=== PATIENT | male | born 1940 | race Caucasian/White ===

== ENCOUNTER 2017-07-26 11:39 | Emergency (ER) | payer MEDICARE, OTHER ==
[~2017-07-26] VITALS: Ht 177.8 cm; Wt 96.4 kg
[~2017-07-26 11:39] MED LIST: CHOL100046 PO; FURO-149 PO; GUAI600T45 PO; IRON45TA7 PO; LOP25T PO; METF500T PO; METH1TAB32 PO; MULT1TAB74 PO; OXYB10TA16 PO; POTA10TA36 PO; RIVA20TA PO; SACU1TAB; SIMV20TA5 PO; [UNRECOGNIZED DRUG - CODE] IT
[2017-07-26 11:53] VITALS: BP 127/80
[2017-07-26] MEDS ORDERED: CLIN150C2 PO (12:15)
[2017-07-26] MEDS ORDERED: TETanus/Pertussis (Acell)/Diphther VAC/PF (Tdap-Adult) 0.5ml syringe IM ONE (12:20)
[2017-07-26] MEDS ORDERED: bacitracin 15gm ointment TP ONE (12:20)
== END 2017-07-26 12:55 | disposition home or self-care (01) ==
LOC: ER 11:40
DX: S81.801A Unspecified open wound, right lower leg, initial encounter (principal); L03.115 Cellulitis of right lower limb; I25.10 Atherosclerotic heart disease of native coronary artery without angina pectoris; I11.0 Hypertensive heart disease with heart failure; E11.9 Type 2 diabetes mellitus without complications; E78.00 Pure hypercholesterolemia, unspecified; I50.9 Heart failure, unspecified; I48.91 Unspecified atrial fibrillation; Z95.1 Presence of aortocoronary bypass graft; Z88.2 Allergy status to sulfonamides; Z79.84 Long term (current) use of oral hypoglycemic drugs; Z79.899 Other long term (current) drug therapy; Z98.890 Other specified postprocedural states; X58.XXXA Exposure to other specified factors, initial encounter; Y93.89 Activity, other specified; Y92.89 Other specified places as the place of occurrence of the external cause; Y99.8 Other external cause status
CPT/HCPCS: 90471; 90715; 99283; A6255; A6449

== ENCOUNTER 2017-09-01 05:06 | Outpatient (CLI) | payer MEDICARE, OTHER | END 2017-09-01 23:59 | disposition home or self-care (01) | LOC: DIABETIC 05:06 | PROVIDERS: ATTEND Family Medicine | DX: E11.9 Type 2 diabetes mellitus without complications (principal); E78.5 Hyperlipidemia, unspecified; I10 Essential (primary) hypertension; I25.10 Atherosclerotic heart disease of native coronary artery without angina pectoris; I11.0 Hypertensive heart disease with heart failure; I50.9 Heart failure, unspecified | CPT/HCPCS: G0108 ==

== ENCOUNTER 2017-12-07 10:58 | Emergency (ER) | payer MEDICARE, OTHER ==
[~2017-12-07] VITALS: Ht 177.8 cm; Wt 96.4 kg
[2017-12-07 14:11] VITALS: BP 163/77
[2017-12-07 14:54] LABS: BASOPHILS % (AUTO) 0.4 % (0-1); EOSINOPHILS # (AUTO) 0.2 X10'3 (0-0.9); EOSINOPHILS % (AUTO) 2.3 % (0-6); HEMATOCRIT 34.6 % (42.0-52.0); HEMOGLOBIN 11.4 g/dl (14.0-17.9); LYMPHOCYTES # (AUTO) 1.1 X10'3 (1.1-4.8); LYMPHOCYTES % (AUTO) 11.9 % (21-51); MEAN CORPUSCULAR HEMOGLOBIN 27.8 PG (27.0-31.0); MEAN CORPUSCULAR VOLUME 84.2 FL (78-98); MEAN PLATELET VOLUME 8.4 FL (7.4-10.4); MONOCYTES # (AUTO) 0.5 X10'3 (0-0.9); MONOCYTES % (AUTO) 5.6 % (2-12); NEUTROPHILS # (AUTO) 7.3 X10'3 (1.8-7.7); NEUTROPHILS % (AUTO) 79.8 % (42-75); PLATELET COUNT 301 X10'3 (140-440); RED BLOOD COUNT 4.11 X10'6 (4.70-6.10); RED CELL DISTRIBUTION WIDTH 18.2 % (11.5-14.5); WHITE BLOOD COUNT 9.1 X10'3 (4.5-11.0)
[2017-12-07 15:05] LABS: INR 1.2 INR; PARTIAL THROMBOPLASTIN TIME 40 SECONDS (22-32); PROTHROMBIN TIME 12.1 SECONDS (9.0-12.0)
[2017-12-07 15:10] LABS: ANISOCYTOSIS 2+; MICROCYTOSIS 1+; PLATELET ESTIMATE NORMAL
[2017-12-07 15:11] LABS: ALANINE AMINOTRANSFERASE 23 U/L (12-78); ALBUMIN 3.2 G/DL (3.4-5.0); ALBUMIN/GLOBULIN RATIO 0.7 (1.1-1.5); ALKALINE PHOSPHATASE 154 IU/L (46-116); ANION GAP 9 (8-16); ASPARTATE AMINO TRANSFERASE 13 U/L (10-37); BILIRUBIN,TOTAL 0.7 MG/DL (0.1-1.0); BLOOD UREA NITROGEN 12 MG/DL (7-18); BUN/CREATININE RATIO 11.7 (5.4-32.0); CALCIUM 9.5 MG/DL (8.5-10.1); CHLORIDE 103 MMOL/L (99-107); CREATININE 1.03 MG/DL (0.60-1.10); GLUCOSE 148 MG/DL (70-104); MAGNESIUM 2.1 MG/DL (1.5-2.4); POTASSIUM 3.5 MMOL/L (3.5-5.1); SODIUM 140 MMOL/L (135-145); TOTAL CARBON DIOXIDE 28.5 MMOL/L (24-32); TOTAL PROTEIN 7.6 G/DL (6.4-8.2); eGFR 70 ML/MIN
[2017-12-07] MEDS ORDERED: AMOX-580 PO (16:00)
== END 2017-12-07 16:41 | disposition home or self-care (01) ==
LOC: ER 10:59
DX: L08.9 Local infection of the skin and subcutaneous tissue, unspecified (principal); I25.10 Atherosclerotic heart disease of native coronary artery without angina pectoris; I11.0 Hypertensive heart disease with heart failure; I50.9 Heart failure, unspecified; E78.00 Pure hypercholesterolemia, unspecified; E11.9 Type 2 diabetes mellitus without complications; I48.91 Unspecified atrial fibrillation; Z95.1 Presence of aortocoronary bypass graft; Z95.0 Presence of cardiac pacemaker; Z88.2 Allergy status to sulfonamides; Z88.8 Allergy status to other drugs, medicaments and biological substances; Z91.010 Allergy to peanuts
CPT/HCPCS: 36415; 71045; 80053; 83605; 83735; 84145; 85025; 85610; 85730; 87040; 93005; 99285; A6253; A6255; A6258

== ENCOUNTER 2017-12-09 00:24 | Outpatient (CLI) | payer MEDICARE, OTHER ==
[~2017-12-09 00:24] MED LIST changes: +AMOX-580 PO
== END 2017-12-09 23:59 | disposition home or self-care (01) ==
LOC: DIABETIC 00:24
PROVIDERS: ATTEND Family Medicine
DX: E10.9 Type 1 diabetes mellitus without complications (principal); E78.5 Hyperlipidemia, unspecified; I67.9 Cerebrovascular disease, unspecified; I11.0 Hypertensive heart disease with heart failure; I50.9 Heart failure, unspecified; E66.01 Morbid (severe) obesity due to excess calories; Z79.84 Long term (current) use of oral hypoglycemic drugs; Z79.899 Other long term (current) drug therapy; Z88.2 Allergy status to sulfonamides; Z91.010 Allergy to peanuts; Z98.890 Other specified postprocedural states
CPT/HCPCS: G0108

== ENCOUNTER 2018-02-04 11:54 | Inpatient (IN) | payer MEDICARE, OTHER ==
[~2018-02-04] VITALS: Ht 177.8 cm; Wt 96.4 kg
[~2018-02-04 11:54] MED LIST changes: -AMOX-580 PO
[2018-02-04] MEDS ORDERED: levoFLOXACIN-Levaquin 750MG/D5 150 ML IV ONE (12:40)
[2018-02-04] MEDS ORDERED: normal saline 1000ML IV soln IV ONE (12:40)
[2018-02-04 13:26] LABS: BASOPHILS # (AUTO) 0.1 X10'3 (0-0.2); BASOPHILS % (AUTO) 0.6 % (0-1); EOSINOPHILS # (AUTO) 0.3 X10'3 (0-0.9); EOSINOPHILS % (AUTO) 2.7 % (0-6); HEMATOCRIT 34.1 % (42.0-52.0); LYMPHOCYTES % (AUTO) 8.6 % (21-51); MEAN CORPUSCULAR HEMOGLOBIN 27.4 PG (27.0-31.0); MEAN CORPUSCULAR HGB CONC 32.2 % (33.0-36.5); MEAN PLATELET VOLUME 8.6 FL (7.4-10.4); MONOCYTES # (AUTO) 0.5 X10'3 (0-0.9); MONOCYTES % (AUTO) 4.3 % (2-12); NEUTROPHILS # (AUTO) 9.4 X10'3 (1.8-7.7); NEUTROPHILS % (AUTO) 83.8 % (42-75); PLATELET COUNT 302 X10'3 (140-440); RED BLOOD COUNT 4.02 X10'6 (4.70-6.10); RED CELL DISTRIBUTION WIDTH 18.1 % (11.5-14.5); WHITE BLOOD COUNT 11.2 X10'3 (4.5-11.0)
[2018-02-04 13:32] LABS: INR 1.2 INR; PROTHROMBIN TIME 12.5 SECONDS (9.0-12.0)
[2018-02-04 13:45] LABS: ALANINE AMINOTRANSFERASE 19 U/L (12-78); ALBUMIN 3.1 G/DL (3.4-5.0); ALBUMIN/GLOBULIN RATIO 0.7 (1.1-1.5); ALKALINE PHOSPHATASE 143 IU/L (46-116); ANION GAP 9 (8-16); ASPARTATE AMINO TRANSFERASE 14 U/L (10-37); BILIRUBIN,TOTAL 0.6 MG/DL (0.1-1.0); BLOOD UREA NITROGEN 15 MG/DL (7-18); BUN/CREATININE RATIO 14.4 (5.4-32.0); CALCIUM 9.3 MG/DL (8.5-10.1); CHLORIDE 102 MMOL/L (99-107); CREATININE 1.04 MG/DL (0.60-1.10); GLUCOSE 171 MG/DL (70-104); POTASSIUM 3.7 MMOL/L (3.5-5.1); SODIUM 142 MMOL/L (135-145); TOTAL CARBON DIOXIDE 31.4 MMOL/L (24-32); TOTAL PROTEIN 7.6 G/DL (6.4-8.2); eGFR 69 ML/MIN
[2018-02-04] MEDS ORDERED: vancomycin inj 1,000 MG in normal saline 250ml IV soln 250 ML IV STA (14:05)
[2018-02-04] MEDS ORDERED: vancomycin/NS 1 GM ADD-VANTAGE 250 ML X 1 DOSE IV ONE (14:10)
[2018-02-04 14:15] LABS: CLARITY,URINE CLOUDY (Clear); COLOR,URINE YELLOW (Yellow); GLUCOSE, URINE NEGATIVE (Neg); KETONES,URINE NEGATIVE (Neg); LEUKOCYTE ESTERASE ,URINE LARGE (Neg); NITRITES, URINE POSITIVE (Neg); OCCULT BLOOD,URINE MODERATE (Neg); PROTEIN,URINE NEGATIVE (Neg); UROBILINOGEN,URINE 0.2 E.U/dL (0.2-1.0)
[2018-02-04 14:17] LABS: UA COLLECTION TYPE FOLEY CATH
[2018-02-04 14:38] LABS: SQUAMOUS EPITHELIAL CELL,UR FEW /LPF (FEW); TRANSITIONAL EPI CELLS,URINE FEW /HPF
[2018-02-04 14:39] LABS: BACTERIA,URINE 4+ /HPF (Neg); WBC CLUMPS,URINE MODERATE /HPF (NEGATIVE); WBC,URINE 50-100 /HPF (0-4)
[2018-02-04] MEDS ORDERED: magnesium hydroxide 30ml (MOM) UD suspension PO PRN (15:05)
[2018-02-04] MEDS ORDERED: potassium Cl 20 mEq SR tablet PO PRN ×2 (15:05)
[2018-02-04] MEDS ORDERED: potassium Cl 40MEQ/NS 500ml 500 ML IV PRN ×2 (15:05)
[2018-02-04] MEDS ORDERED: acetaminophen 650mg rectal suppository RC PRN (15:05)
[2018-02-04] MEDS ORDERED: acetaminophen 325mg tablet PO PRN (15:05)
[2018-02-04] MEDS ORDERED: magnesium 1gm/100ml D5W IVPB 100 ML IV PRN (15:05)
[2018-02-04] MEDS ORDERED: mag hydrox/Alum hydrox/simeth 30ml oral suspension PO PRN (15:05)
[2018-02-04] MEDS ORDERED: ondansetron/PF 4mg/2ml inj IV PRN (15:05)
[2018-02-04] MEDS ORDERED: magnesium 4gm in 100ml NS 100 ML IV PRN (15:05)
[2018-02-04] MEDS ORDERED: magnesium Cl slow-release 64mg tablet PO PRN (15:05)
[2018-02-04] MEDS ORDERED: insulin Lispro (HumaLOG) vial - multi-dose SQ SCH (15:35)
[2018-02-04] MEDS ORDERED: glucagon, human recombinant 1mg kit SUBCUT PRN (15:35)
[2018-02-04] MEDS ORDERED: dextrose 50%-water 50ml dispensing syringe IV PRN ×2 (15:35)
[2018-02-04] MEDS ORDERED: dextrose ORAL solution 15 GM/59 ML bottle PO PRN ×2 (15:35)
[2018-02-04] MEDS ORDERED: MESSAGE TO PHARMACY PO ONE (15:35)
[2018-02-04] MEDS ORDERED: VANCOMYCIN LEVEL PO NR (15:50)
[2018-02-04] MEDS: normal saline 1000ml 1,000 ML IV SCH (16:06)
[2018-02-04 16:54] LABS: HEMOGLOBIN A1C 7.6 % (4.5-6.2)
[2018-02-04 17:25] VITALS: BP 179/87
[2018-02-04 18:00] VITALS: BP 143/64
[2018-02-04] MEDS ORDERED: non-formulary drug (Potassium Chloride (K-Dur) 1 TAB) PO SCH (20:00)
[2018-02-04] MEDS ORDERED: non-formulary drug (Simvastatin* (Zocor*) 1 TAB) PO SCH (21:00)
[2018-02-04] MEDS ORDERED: temazepam 15mg capsule PO PRN (21:00)
[2018-02-04] MEDS: insulin glargine (Lantus) pen - multi-dose SQ SCH (21:00)
[2018-02-04] MEDS: potassium chloride 10mEq ER tablet PO SCH (21:40)
[2018-02-04] MEDS: furosemide 20MG tablet PO SCH (21:41)
[2018-02-04] MEDS: methenamine hippurate 1gm tablet PO SCH (21:42)
[2018-02-04] MEDS: heparin, porcine 5000 units/ml vial SQ SCH (21:42)
[2018-02-04] MEDS: metoprolol tartrate 25mg tablet PO SCH (21:43)
[2018-02-04] MEDS: atorvastatin 10mg tablet PO SCH (21:44)
[2018-02-04] MEDS: CefTRIAXone 2gm/D5W 50ml 50 ML IV SCH (21:54)
[2018-02-04] MEDS ORDERED: vancomycin inj 1,250 MG in normal saline 250ml IV soln 250 ML IV SCH (22:00)
[2018-02-04] MEDS: vancomycin inj 1,250 MG in normal saline 250ml IV soln 250 ML IV SCH (23:35)
[2018-02-05] VITALS: BP 109/56
[2018-02-05] MEDS ORDERED: vancomycin inj 1,250 MG in normal saline 250ml IV soln 250 ML IV SCH (03:00)
[2018-02-05] MEDS: normal saline 1000ml 1,000 ML IV SCH ×2 (04:24→12:37)
[2018-02-05 07:39] VITALS: BP 125/63
[2018-02-05] MEDS: K and/or MAG REPLACEMENT MC SCH (07:59)
[2018-02-05] MEDS: heparin, porcine 5000 units/ml vial SQ SCH ×2 (08:00→21:01)
[2018-02-05] MEDS ORDERED: rivaroxaban 20mg tablet PO SCH (08:00)
[2018-02-05] MEDS: CefTRIAXone 2gm/D5W 50ml 50 ML IV SCH (08:07)
[2018-02-05] MEDS: methenamine hippurate 1gm tablet PO SCH ×2 (08:07→21:00)
[2018-02-05] MEDS: metoprolol tartrate 25mg tablet PO SCH ×2 (08:07→20:59)
[2018-02-05] MEDS: furosemide 20MG tablet PO SCH ×2 (08:08→20:59)
[2018-02-05] MEDS: potassium chloride 10mEq ER tablet PO SCH ×2 (08:08→20:58)
[2018-02-05 12:04] VITALS: BP 120/57
[2018-02-05] MEDS: vancomycin inj 1,250 MG in normal saline 250ml IV soln 250 ML IV SCH ×2 (12:33→22:44)
[2018-02-05] MEDS ORDERED: lactose-reduced food (Ensure High Protein) 237ml bottle PO SCH (17:30)
[2018-02-05 18:00] VITALS: BP 137/63
[2018-02-05] MEDS: lactobacillus rhamnosus 10,000 MMU CELLS/CAPSULE PO SCH (20:58)
[2018-02-05] MEDS: sacubitril/valsartan 24mg-26mg tablet PO SCH (20:59)
[2018-02-05] MEDS: insulin glargine (Lantus) pen - multi-dose SQ SCH (21:00)
[2018-02-05] MEDS: atorvastatin 10mg tablet PO SCH (21:00)
[2018-02-05] MEDS: rivaroxaban 20mg tablet PO SCH ×2 (21:00→21:01)
[2018-02-06] VITALS: BP 119/65
[2018-02-06 07:14] VITALS: BP 113/46
[2018-02-06] MEDS: lactobacillus rhamnosus 10,000 MMU CELLS/CAPSULE PO SCH (07:32)
[2018-02-06] MEDS: methenamine hippurate 1gm tablet PO SCH (07:33)
[2018-02-06] MEDS: potassium chloride 10mEq ER tablet PO SCH (07:33)
[2018-02-06] MEDS: heparin, porcine 5000 units/ml vial SQ SCH (07:40)
[2018-02-06] MEDS: sacubitril/valsartan 24mg-26mg tablet PO SCH (07:40)
[2018-02-06 07:41] VITALS: BP_SYST 104
[2018-02-06] MEDS: metoprolol tartrate 25mg tablet PO SCH (07:41)
[2018-02-06] MEDS: furosemide 20MG tablet PO SCH (07:44)
[2018-02-06] MEDS: K and/or MAG REPLACEMENT MC SCH (07:57)
[2018-02-06] MEDS ORDERED: piperacillin/tazo 4.5gm/100ml 100 ML IV SCH (08:00)
[2018-02-06] MEDS ORDERED: LEVO500T2 PO (09:15)
[2018-02-06] MEDS ORDERED: CEPH250T PO (09:15)
[2018-02-06] MEDS ORDERED: VANCOMYCIN LEVEL PO ONE (10:30)
[2018-02-06] MEDS ORDERED: NUT.TX.GLUC.INTOLER,LAC-FR,SOY (GLUCERNA) 237 ML PO SCH (12:30)
== END 2018-02-06 12:00 | disposition home health service (06) | DRG 698 ==
LOC: ER 11:54 → ED HOLD 15:04 → SUR 3N 17:27
PROVIDERS: ADMIT Internal Medicine; ATTEND Internal Medicine
DX: T83.511A Infection and inflammatory reaction due to indwelling urethral catheter, initial encounter (principal); G82.50 Quadriplegia, unspecified; L03.317 Cellulitis of buttock; L89.319 Pressure ulcer of right buttock, unspecified stage; B96.20 Unspecified Escherichia coli [E. coli] as the cause of diseases classified elsewhere; D63.8 Anemia in other chronic diseases classified elsewhere; E11.9 Type 2 diabetes mellitus without complications; E78.00 Pure hypercholesterolemia, unspecified; N39.0 Urinary tract infection, site not specified; E78.5 Hyperlipidemia, unspecified; G47.30 Sleep apnea, unspecified; I11.0 Hypertensive heart disease with heart failure; B96.4 Proteus (mirabilis) (morganii) as the cause of diseases classified elsewhere; B95.2 Enterococcus as the cause of diseases classified elsewhere; Y84.6 Urinary catheterization as the cause of abnormal reaction of the patient, or of later complication, without mention of misadventure at the time of the procedure; I25.10 Atherosclerotic heart disease of native coronary artery without angina pectoris; I48.91 Unspecified atrial fibrillation; I50.9 Heart failure, unspecified; Z93.3 Colostomy status; Z95.5 Presence of coronary angioplasty implant and graft; Z95.1 Presence of aortocoronary bypass graft; Z88.2 Allergy status to sulfonamides; Z88.8 Allergy status to other drugs, medicaments and biological substances; Z91.010 Allergy to peanuts; Z79.01 Long term (current) use of anticoagulants; Z79.84 Long term (current) use of oral hypoglycemic drugs; Z79.899 Other long term (current) drug therapy; Y92.89 Other specified places as the place of occurrence of the external cause
CPT/HCPCS: 36415; 71045; 80053; 81001; 82948; 83036; 83605; 83735; 84145; 85025; 85610; 87040; 87070; 87077; 87088; 87186; 96365; 99285; G0378; J0696; J1644; J1815; J1956; J2543; J3370; J7030

== ENCOUNTER 2018-02-11 10:52 | Day surgery (SDC) | payer MEDICARE, OTHER ==
[~2018-02-11 10:52] MED LIST changes: +CEPH250T PO; -GUAI600T45 PO; +LEVO500T2 PO; -OXYB10TA16 PO
== END 2018-02-11 13:05 | disposition home or self-care (01) ==
LOC: WOUND CARE 10:52
PROVIDERS: ATTEND Surgery
DX: E11.622 Type 2 diabetes mellitus with other skin ulcer (principal); L89.314 Pressure ulcer of right buttock, stage 4; L98.411 Non-pressure chronic ulcer of buttock limited to breakdown of skin; D63.8 Anemia in other chronic diseases classified elsewhere; I11.0 Hypertensive heart disease with heart failure; I25.10 Atherosclerotic heart disease of native coronary artery without angina pectoris; I50.9 Heart failure, unspecified; E78.5 Hyperlipidemia, unspecified; E78.00 Pure hypercholesterolemia, unspecified; G82.50 Quadriplegia, unspecified; G47.30 Sleep apnea, unspecified; I48.91 Unspecified atrial fibrillation; Z79.01 Long term (current) use of anticoagulants; Z79.84 Long term (current) use of oral hypoglycemic drugs; Z79.899 Other long term (current) drug therapy; Z95.1 Presence of aortocoronary bypass graft; Z95.5 Presence of coronary angioplasty implant and graft
CPT/HCPCS: 82948; 97597; A6266; A6213

== ENCOUNTER 2018-02-25 10:54 | Day surgery (SDC) | payer MEDICARE, OTHER | END 2018-02-25 13:12 | disposition home or self-care (01) | LOC: WOUND CARE 10:54 | PROVIDERS: ATTEND Surgery | DX: E11.622 Type 2 diabetes mellitus with other skin ulcer (principal); L89.314 Pressure ulcer of right buttock, stage 4; L98.411 Non-pressure chronic ulcer of buttock limited to breakdown of skin; D63.8 Anemia in other chronic diseases classified elsewhere; I11.0 Hypertensive heart disease with heart failure; I25.10 Atherosclerotic heart disease of native coronary artery without angina pectoris; I50.9 Heart failure, unspecified; E78.5 Hyperlipidemia, unspecified; E78.00 Pure hypercholesterolemia, unspecified; G82.50 Quadriplegia, unspecified; G47.30 Sleep apnea, unspecified; I48.91 Unspecified atrial fibrillation; Z79.01 Long term (current) use of anticoagulants; Z79.84 Long term (current) use of oral hypoglycemic drugs; Z79.899 Other long term (current) drug therapy; Z95.1 Presence of aortocoronary bypass graft; Z95.5 Presence of coronary angioplasty implant and graft | CPT/HCPCS: 36416; 82948; 97597; A6266; A6021; A6206; A6240; A6243 ==

== ENCOUNTER 2018-03-04 11:00 | Day surgery (SDC) | payer MEDICARE, OTHER ==
[2018-03-04] MEDS ORDERED: nystatin/triamcinolone cream 15gm TP ONE (12:32)
== END 2018-03-04 13:30 | disposition home or self-care (01) ==
LOC: WOUND CARE 11:00
PROVIDERS: ATTEND Surgery
DX: E11.622 Type 2 diabetes mellitus with other skin ulcer (principal); L89.314 Pressure ulcer of right buttock, stage 4; L98.411 Non-pressure chronic ulcer of buttock limited to breakdown of skin; D63.8 Anemia in other chronic diseases classified elsewhere; L30.4 Erythema intertrigo; I11.0 Hypertensive heart disease with heart failure; I25.10 Atherosclerotic heart disease of native coronary artery without angina pectoris; I50.9 Heart failure, unspecified; E78.5 Hyperlipidemia, unspecified; E78.00 Pure hypercholesterolemia, unspecified; G82.50 Quadriplegia, unspecified; G47.30 Sleep apnea, unspecified; I48.91 Unspecified atrial fibrillation; Z79.01 Long term (current) use of anticoagulants; Z79.84 Long term (current) use of oral hypoglycemic drugs; Z79.899 Other long term (current) drug therapy; Z95.1 Presence of aortocoronary bypass graft; Z95.5 Presence of coronary angioplasty implant and graft
CPT/HCPCS: 97597; 97598; A6266; A6213; A6243

== ENCOUNTER 2018-03-10 00:54 | Outpatient (CLI) | payer MEDICARE, OTHER ==
[~2018-03-10 00:54] MED LIST changes: -CEPH250T PO; -LEVO500T2 PO
== END 2018-03-10 23:59 | disposition home or self-care (01) ==
LOC: DIABETIC 00:54
PROVIDERS: ATTEND Family Medicine
DX: E11.9 Type 2 diabetes mellitus without complications (principal); I11.0 Hypertensive heart disease with heart failure; I50.9 Heart failure, unspecified; I67.9 Cerebrovascular disease, unspecified; E78.5 Hyperlipidemia, unspecified; E66.01 Morbid (severe) obesity due to excess calories; Z79.899 Other long term (current) drug therapy; Z88.2 Allergy status to sulfonamides; Z91.010 Allergy to peanuts
CPT/HCPCS: G0108

== ENCOUNTER 2018-03-12 18:03 | Emergency (ER) | payer MEDICARE, OTHER ==
[~2018-03-12] VITALS: Ht 177.8 cm; Wt 96.4 kg
[2018-03-12 19:02] LABS: ALANINE AMINOTRANSFERASE 23 U/L (12-78); ALBUMIN 3.6 G/DL (3.4-5.0); ALBUMIN/GLOBULIN RATIO 0.8 (1.1-1.5); ALKALINE PHOSPHATASE 149 IU/L (46-116); ANION GAP 9 (8-16); ASPARTATE AMINO TRANSFERASE 18 U/L (10-37); BILIRUBIN,TOTAL 0.5 MG/DL (0.1-1.0); BLOOD UREA NITROGEN 15 MG/DL (7-18); BUN/CREATININE RATIO 15.2 (5.4-32.0); CALCIUM 9.3 MG/DL (8.5-10.1); CHLORIDE 102 MMOL/L (99-107); CREATININE 0.99 MG/DL (0.60-1.10); GLUCOSE 177 MG/DL (70-104); INR 1.1 INR; PARTIAL THROMBOPLASTIN TIME 36 SECONDS (22-32); POTASSIUM 3.6 MMOL/L (3.5-5.1); PROTHROMBIN TIME 11.3 SECONDS (9.0-12.0); SODIUM 140 MMOL/L (135-145); TOTAL CARBON DIOXIDE 29.4 MMOL/L (24-32); TOTAL PROTEIN 8.1 G/DL (6.4-8.2); eGFR 73 ML/MIN
[2018-03-12 19:09] LABS: BASOPHILS % (AUTO) 0.2 % (0-1); EOSINOPHILS # (AUTO) 0.4 X10'3 (0-0.9); EOSINOPHILS % (AUTO) 4.3 % (0-6); HEMATOCRIT 35.8 % (42.0-52.0); HEMOGLOBIN 11.7 g/dl (14.0-17.9); LYMPHOCYTES # (AUTO) 1.5 X10'3 (1.1-4.8); LYMPHOCYTES % (AUTO) 14.7 % (21-51); MEAN CORPUSCULAR HEMOGLOBIN 27.4 PG (27.0-31.0); MEAN CORPUSCULAR HGB CONC 32.6 % (33.0-36.5); MEAN CORPUSCULAR VOLUME 84.1 FL (78-98); MEAN PLATELET VOLUME 9.3 FL (7.4-10.4); MONOCYTES # (AUTO) 0.5 X10'3 (0-0.9); MONOCYTES % (AUTO) 5.1 % (2-12); NEUTROPHILS # (AUTO) 7.5 X10'3 (1.8-7.7); NEUTROPHILS % (AUTO) 75.7 % (42-75); PLATELET COUNT 309 X10'3 (140-440); RED BLOOD COUNT 4.25 X10'6 (4.70-6.10); WHITE BLOOD COUNT 9.9 X10'3 (4.5-11.0)
[2018-03-12 21:29] LABS: CLARITY,URINE SLIGHTLY CLOUDY (Clear); COLOR,URINE YELLOW (Yellow); GLUCOSE, URINE NEGATIVE (Neg); KETONES,URINE NEGATIVE (Neg); LEUKOCYTE ESTERASE ,URINE LARGE (Neg); NITRITES, URINE NEGATIVE (Neg); OCCULT BLOOD,URINE MODERATE (Neg); PROTEIN,URINE 30 mg/dl (Neg); UROBILINOGEN,URINE 0.2 E.U/dL (0.2-1.0)
[2018-03-12 21:36] LABS: UA COLLECTION TYPE FOLEY CATH
[2018-03-12 21:37] LABS: BACTERIA,URINE 4+ /HPF (Neg); SQUAMOUS EPITHELIAL CELL,UR MODERATE /LPF (FEW); WBC,URINE TNTC /HPF (0-4)
[2018-03-12 21:38] LABS: YEAST MANY /HPF (NEGATIVE)
[2018-03-12] MEDS ORDERED: NITR100C6 PO (21:55)
[2018-03-12] MEDS: CefTRIAXone/D5W-Rocephin 1gm 50 ML IV ONE ×2 (22:16→22:47)
[2018-03-12 22:32] VITALS: BP 162/101
[2018-03-12] MEDS ORDERED: CefTRIAXone 1000mg IM Kit (w/lidocaine diluent) IM ONE (22:45)
== END 2018-03-12 23:51 | disposition home or self-care (01) ==
LOC: ER 18:04
DX: R53.1 Weakness (principal); N39.0 Urinary tract infection, site not specified; I48.91 Unspecified atrial fibrillation; I25.10 Atherosclerotic heart disease of native coronary artery without angina pectoris; I50.9 Heart failure, unspecified; E78.00 Pure hypercholesterolemia, unspecified; I11.0 Hypertensive heart disease with heart failure; E11.9 Type 2 diabetes mellitus without complications; Z98.61 Coronary angioplasty status; Z95.1 Presence of aortocoronary bypass graft; Z95.0 Presence of cardiac pacemaker; Z98.890 Other specified postprocedural states; Z91.010 Allergy to peanuts; Z88.2 Allergy status to sulfonamides; Z88.8 Allergy status to other drugs, medicaments and biological substances; Z79.899 Other long term (current) drug therapy
CPT/HCPCS: 36415; 70450; 71045; 80053; 81001; 82948; 85025; 85610; 85730; 87077; 87088; 87186; 93005; 96372; 99284; J0696

== ENCOUNTER 2018-03-18 10:57 | Outpatient (CLI) | payer MEDICARE, OTHER ==
[~2018-03-18 10:57] MED LIST changes: +NITR100C6 PO
== END 2018-03-18 13:14 | disposition home or self-care (01) ==
LOC: WOUND CARE 10:57 → EDSTATUS 11:00 → WOUND CARE 13:14
PROVIDERS: ATTEND Surgery
DX: E11.622 Type 2 diabetes mellitus with other skin ulcer (principal); L89.314 Pressure ulcer of right buttock, stage 4; L98.411 Non-pressure chronic ulcer of buttock limited to breakdown of skin; D63.8 Anemia in other chronic diseases classified elsewhere; L30.4 Erythema intertrigo; I11.0 Hypertensive heart disease with heart failure; I25.10 Atherosclerotic heart disease of native coronary artery without angina pectoris; I50.9 Heart failure, unspecified; E78.5 Hyperlipidemia, unspecified; E78.00 Pure hypercholesterolemia, unspecified; G82.50 Quadriplegia, unspecified; G47.30 Sleep apnea, unspecified; I48.91 Unspecified atrial fibrillation; Z79.01 Long term (current) use of anticoagulants; Z79.84 Long term (current) use of oral hypoglycemic drugs; Z79.899 Other long term (current) drug therapy; Z95.1 Presence of aortocoronary bypass graft; Z95.5 Presence of coronary angioplasty implant and graft
CPT/HCPCS: 36416; 82948; A6266; G0463; A6021; A6206; A6240; A6243

== ENCOUNTER 2018-03-22 22:12 | Inpatient (IN) | payer MEDICARE, OTHER ==
[~2018-03-22] VITALS: Ht 175.3 cm; Wt 100.0 kg
[2018-03-22 23:13] LABS: BASOPHILS % (AUTO) 0.3 % (0-1); EOSINOPHILS # (AUTO) 0.2 X10'3 (0-0.9); HEMATOCRIT 36.4 % (42.0-52.0); HEMOGLOBIN 11.5 g/dl (14.0-17.9); LYMPHOCYTES # (AUTO) 0.9 X10'3 (1.1-4.8); LYMPHOCYTES % (AUTO) 7.7 % (21-51); MEAN CORPUSCULAR HGB CONC 31.6 % (33.0-36.5); MEAN CORPUSCULAR VOLUME 85.4 FL (78-98); MEAN PLATELET VOLUME 9.2 FL (7.4-10.4); MONOCYTES # (AUTO) 0.4 X10'3 (0-0.9); MONOCYTES % (AUTO) 3.4 % (2-12); NEUTROPHILS # (AUTO) 10.3 X10'3 (1.8-7.7); NEUTROPHILS % (AUTO) 86.6 % (42-75); PLATELET COUNT 309 X10'3 (140-440); RED BLOOD COUNT 4.27 X10'6 (4.70-6.10); RED CELL DISTRIBUTION WIDTH 18.3 % (11.5-14.5); WHITE BLOOD COUNT 11.9 X10'3 (4.5-11.0)
[2018-03-22 23:31] LABS: INR 1.6 INR; PARTIAL THROMBOPLASTIN TIME 45 SECONDS (22-32); PROTHROMBIN TIME 15.4 SECONDS (9.0-12.0)
[2018-03-22 23:33] LABS: ALANINE AMINOTRANSFERASE 23 U/L (12-78); ALBUMIN 3.7 G/DL (3.4-5.0); ALBUMIN/GLOBULIN RATIO 0.8 (1.1-1.5); ALKALINE PHOSPHATASE 142 IU/L (46-116); ANION GAP 12 (8-16); ASPARTATE AMINO TRANSFERASE 18 U/L (10-37); BILIRUBIN,TOTAL 0.6 MG/DL (0.1-1.0); BLOOD UREA NITROGEN 17 MG/DL (7-18); BUN/CREATININE RATIO 17.5 (5.4-32.0); CALCIUM 9.1 MG/DL (8.5-10.1); CHLORIDE 104 MMOL/L (99-107); CREATININE 0.97 MG/DL (0.60-1.10); GLUCOSE 159 MG/DL (70-104); POTASSIUM 3.7 MMOL/L (3.5-5.1); SODIUM 143 MMOL/L (135-145); TOTAL CARBON DIOXIDE 27.5 MMOL/L (24-32); TOTAL PROTEIN 8.1 G/DL (6.4-8.2); eGFR 75 ML/MIN
[2018-03-23 00:43] LABS: COLOR,URINE YELLOW (Yellow); GLUCOSE, URINE NEGATIVE (Neg); KETONES,URINE NEGATIVE (Neg); LEUKOCYTE ESTERASE ,URINE LARGE (Neg); NITRITES, URINE POSITIVE (Neg); OCCULT BLOOD,URINE SMALL (Neg); PROTEIN,URINE NEGATIVE (Neg); UROBILINOGEN,URINE 0.2 E.U/dL (0.2-1.0)
[2018-03-23 00:48] LABS: CLARITY,URINE SLIGHTLY CLOUDY (Clear); UA COLLECTION TYPE STRAIGHT CATH
[2018-03-23 00:50] LABS: BACTERIA,URINE 3+ /HPF (Neg); SQUAMOUS EPITHELIAL CELL,UR NONE SEEN /LPF (FEW); WBC,URINE 30-50 /HPF (0-4); YEAST FEW /HPF (NEGATIVE)
--- NOTE | 2018-03-23 01:32 | NUR ---
WENT TO DRAW PTS 3 HR TROP, FOUND IV OUT OF ARM. LAB WENT TO DRAW LABS AND PT REFUSED. TRACY WAS NOTIFIED
[2018-03-23] MEDS ORDERED: CEPH250T PO (01:47)
[2018-03-23] MEDS ORDERED: CefTRIAXone 1000mg IM Kit (w/lidocaine diluent) IM ONE (01:50)
--- NOTE | 2018-03-23 02:01 | NUR ---
AWARE OF VITAL SIGNS
--- NOTE | 2018-03-23 02:02 | NUR ---
MD WOOD TOLD PT ABOUT POC TO STAY IN HOSPITAL
[2018-03-23] MEDS ORDERED: hydrALAZINE 20mg/ml inj. IV ONE (02:10)
[2018-03-23] MEDS ORDERED: mag hydrox/Alum hydrox/simeth 30ml oral suspension PO PRN (02:45)
[2018-03-23] MEDS ORDERED: HYDROmorphone 1 mg/ml syringe IV PRN (02:45)
[2018-03-23] MEDS ORDERED: diphenhydrAMINE 50 mg/ml inj IV PRN (02:45)
[2018-03-23] MEDS ORDERED: acetaminophen 325mg tablet PO PRN (02:45)
[2018-03-23] MEDS ORDERED: acetaminophen 650mg rectal suppository RC PRN (02:45)
[2018-03-23] MEDS ORDERED: magnesium hydroxide 30ml (MOM) UD suspension PO PRN (02:45)
[2018-03-23] MEDS ORDERED: HYDROcodone/acetaminophen 10/325mg tab PO PRN (02:45)
[2018-03-23] MEDS ORDERED: ondansetron/PF 4mg/2ml inj IV PRN (02:45)
[2018-03-23] MEDS ORDERED: bisacodyl 10mg suppository rectal RC PRN (02:45)
[2018-03-23] MEDS ORDERED: morphine 4 MG/ML inj SYRINge IV PRN (02:45)
[2018-03-23] MEDS ORDERED: diphenhydrAMINE 25mg capsule PO PRN (02:45)
[2018-03-23] MEDS ORDERED: dextrose 50%-water 50ml dispensing syringe IV PRN ×2 (02:50)
[2018-03-23] MEDS ORDERED: glucagon, human recombinant 1mg kit SUBCUT PRN (02:50)
[2018-03-23] MEDS ORDERED: insulin Lispro (HumaLOG) vial - multi-dose SQ SCH (02:50)
[2018-03-23] MEDS ORDERED: MESSAGE TO PHARMACY PO ONE (02:50)
[2018-03-23] MEDS ORDERED: dextrose ORAL solution 15 GM/59 ML bottle PO PRN ×2 (02:50)
[2018-03-23] MEDS ORDERED: hydrALAZINE 20mg/ml inj. IV PRN (02:50)
[2018-03-23] MEDS ORDERED: normal saline 1000ml 1,000 ML IV STA (03:11)
[2018-03-23 03:26] LABS: MAGNESIUM 2.2 MG/DL (1.5-2.4)
--- NOTE | 2018-03-23 04:00 | NUR ---
Patient in room ORTHO 4011. I have received report from REID Johnson and had the opportunity to ask questions and assume patient care. Addendum: 03/23/18 at 0536 by Corina Khan RN Report received from REID Torres
[2018-03-23 04:30] VITALS: BP 141/61
[2018-03-23] MEDS: normal saline 1000ml 1,000 ML IV SCH (05:20)
[2018-03-23 06:00] VITALS: BP 141/60
--- NOTE | 2018-03-23 06:05 | NUR ---
Patient in room ORTHO 4011. I have received report from JOSE MANUEL MATHEWS and had the opportunity to ask questions and assume patient care.
--- NOTE | 2018-03-23 06:48 | NUR ---
Problems reprioritized. Patient report given, questions answered & plan of care reviewed with REID Overton.
[2018-03-23] MEDS ORDERED: methenamine hippurate 1gm tablet PO SCH (08:00)
[2018-03-23] MEDS: rivaroxaban 20mg tablet PO SCH (08:44)
[2018-03-23] MEDS: pantoprazole 40mg Tablet.DR PO SCH (08:44)
[2018-03-23] MEDS: vitamin D (cholecalciferol) 1,000 unit tablet PO SCH (08:44)
[2018-03-23] MEDS: docusate sod 100mg capsule PO SCH ×2 (08:45→19:58)
[2018-03-23] MEDS: metoprolol tartrate 25mg tablet PO SCH ×2 (08:47→19:58)
[2018-03-23 10:00] VITALS: BP 129/47
[2018-03-23] MEDS: CefTRIAXone/D5W-Rocephin 1gm 50 ML IV SCH (13:35)
[2018-03-23 13:51] LABS: INR 1.6 INR; PARTIAL THROMBOPLASTIN TIME 44 SECONDS (22-32); PROTHROMBIN TIME 16.1 SECONDS (9.0-12.0)
[2018-03-23] MEDS: levoFLOXACIN-Levaquin 500mg/D5 100 ML IV SCH (14:48)
--- NOTE | 2018-03-23 16:30 | NUR ---
CALLED [facility] FOR WOUND CARE ORDERS. WILL BE FAXED WHEN AVAILABLE.
--- NOTE | 2018-03-23 16:31 | NUR ---
IV INFILTRATED AGAIN, RECEIVED IV ABX. MULTIPLE ATTEMPTS AT IV ACCESS. WILL ATTEMPT TO CONTACT PICC LINE RN TOMORROW FOR AN EXTENDED AND NOTIFY MD.
[2018-03-23 18:00] VITALS: BP 138/53
--- NOTE | 2018-03-23 18:20 | NUR ---
Problems reprioritized. Patient report given, questions answered & plan of care reviewed with CASANDRA MATHEWS.
--- NOTE | 2018-03-23 18:31 | NUR ---
Patient in room ORTHO 4011. I have received report from Chaim MATHEWS and had the opportunity to ask questions and assume patient care.
[2018-03-23] MEDS: methenamine hippurate 1gm tablet PO SCH (19:59)
[2018-03-23] MEDS ORDERED: temazepam 15mg capsule PO PRN (21:00)
[2018-03-23] MEDS: insulin glargine (Lantus) pen - multi-dose SQ SCH (21:00)
[2018-03-23] MEDS: atorvastatin 10mg tablet PO SCH (21:20)
[2018-03-23 22:00] VITALS: BP 166/78
[2018-03-24] MEDS: CefTRIAXone/D5W-Rocephin 1gm 50 ML IV SCH ×3 (01:17→20:03)
[2018-03-24 06:00] VITALS: BP 97/42
--- NOTE | 2018-03-24 06:12 | NUR ---
Patient in room ORTHO 4011. I have received report from CSAANDRA MATHEWS and had the opportunity to ask questions and assume patient care.
--- NOTE | 2018-03-24 06:27 | NUR ---
Problems reprioritized. Patient report given, questions answered & plan of care reviewed with Chaim MATHEWS.
[2018-03-24] MEDS: docusate sod 100mg capsule PO SCH ×2 (08:00→20:04)
[2018-03-24 08:23] LABS: ALANINE AMINOTRANSFERASE 7 U/L (12-78); ALBUMIN 2.9 G/DL (3.4-5.0); ALBUMIN/GLOBULIN RATIO 0.8 (1.1-1.5); ALKALINE PHOSPHATASE 103 IU/L (46-116); ANION GAP 9 (8-16); ASPARTATE AMINO TRANSFERASE 10 U/L (10-37); BILIRUBIN,TOTAL 0.5 MG/DL (0.1-1.0); BLOOD UREA NITROGEN 16 MG/DL (7-18); BUN/CREATININE RATIO 17.8 (5.4-32.0); CALCIUM 8.6 MG/DL (8.5-10.1); CHLORIDE 107 MMOL/L (99-107); GLUCOSE 133 MG/DL (70-104); SODIUM 143 MMOL/L (135-145); TOTAL CARBON DIOXIDE 26.7 MMOL/L (24-32); TOTAL PROTEIN 6.5 G/DL (6.4-8.2); eGFR 82 ML/MIN
--- NOTE | 2018-03-24 08:34 | NUR ---
PAGER ID: [phone] MESSAGE: [phone] [id number] RE: DOMONIQUE [id number] CRITICAL K 3.0, CAN I ORDER THE PROTOCOL
[2018-03-24] MEDS ORDERED: magnesium 4gm in 100ml NS 100 ML IV PRN (08:40)
[2018-03-24] MEDS ORDERED: potassium Cl 20 mEq SR tablet PO PRN (08:40)
[2018-03-24] MEDS ORDERED: potassium Cl 40MEQ/NS 500ml 500 ML IV PRN ×2 (08:40)
[2018-03-24] MEDS ORDERED: magnesium 2GM in 50ml NS 50 ML IV PRN (08:40)
[2018-03-24] MEDS ORDERED: magnesium Cl slow-release 64mg tablet PO PRN (08:40)
[2018-03-24 08:52] LABS: BASOPHILS % (AUTO) 0.4 % (0-1); EOSINOPHILS # (AUTO) 0.4 X10'3 (0-0.9); EOSINOPHILS % (AUTO) 5.2 % (0-6); HEMOGLOBIN 9.6 g/dl (14.0-17.9); LYMPHOCYTES # (AUTO) 0.9 X10'3 (1.1-4.8); LYMPHOCYTES % (AUTO) 12.4 % (21-51); MEAN CORPUSCULAR VOLUME 84.4 FL (78-98); MEAN PLATELET VOLUME 9.6 FL (7.4-10.4); MONOCYTES # (AUTO) 0.3 X10'3 (0-0.9); MONOCYTES % (AUTO) 4.8 % (2-12); NEUTROPHILS # (AUTO) 5.6 X10'3 (1.8-7.7); NEUTROPHILS % (AUTO) 77.2 % (42-75); PLATELET COUNT 221 X10'3 (140-440); RED BLOOD COUNT 3.55 X10'6 (4.70-6.10); RED CELL DISTRIBUTION WIDTH 18.3 % (11.5-14.5); WHITE BLOOD COUNT 7.2 X10'3 (4.5-11.0)
[2018-03-24] MEDS: pantoprazole 40mg Tablet.DR PO SCH (09:08)
[2018-03-24] MEDS: rivaroxaban 20mg tablet PO SCH (09:10)
[2018-03-24] MEDS: vitamin D (cholecalciferol) 1,000 unit tablet PO SCH (09:10)
[2018-03-24 09:12] VITALS: BP 129/71
[2018-03-24] MEDS: metoprolol tartrate 25mg tablet PO SCH ×2 (09:15→20:08)
[2018-03-24] MEDS: methenamine hippurate 1gm tablet PO SCH ×2 (09:16→20:04)
[2018-03-24] MEDS: potassium Cl 20 mEq SR tablet PO PRN ×3 (09:17→17:34)
[2018-03-24 10:00] VITALS: BP 132/64
[2018-03-24] MEDS: levoFLOXACIN-Levaquin 500mg/D5 100 ML IV SCH (10:41)
[2018-03-24 18:00] VITALS: BP 129/66
--- NOTE | 2018-03-24 18:10 | NUR ---
Problems reprioritized. Patient report given, questions answered & plan of care reviewed with ROBERT MATHEWS.
--- NOTE | 2018-03-24 18:30 | NUR ---
Patient in room ORTHO 4011. I have received report from REID GLASS and had the opportunity to ask questions and assume patient care.
[2018-03-24] MEDS: lactobacillus rhamnosus 10,000 MMU CELLS/CAPSULE PO SCH (20:04)
[2018-03-24] MEDS: atorvastatin 10mg tablet PO SCH (20:04)
[2018-03-24] MEDS: insulin glargine (Lantus) pen - multi-dose SQ SCH (21:00)
[2018-03-24 22:00] VITALS: BP 121/61
[2018-03-25 06:00] VITALS: BP 132/68
--- NOTE | 2018-03-25 06:23 | NUR ---
Problems reprioritized. Patient report given, questions answered & plan of care reviewed with REID GLASS.
[2018-03-25] MEDS: normal saline 1000ml 1,000 ML IV SCH (06:44)
[2018-03-25 07:11] LABS: BASOPHILS % (AUTO) 0.1 % (0-1); EOSINOPHILS # (AUTO) 0.2 X10'3 (0-0.9); EOSINOPHILS % (AUTO) 3.1 % (0-6); HEMATOCRIT 30.2 % (42.0-52.0); HEMOGLOBIN 9.7 g/dl (14.0-17.9); LYMPHOCYTES % (AUTO) 12.4 % (21-51); MEAN CORPUSCULAR HEMOGLOBIN 27.1 PG (27.0-31.0); MEAN CORPUSCULAR VOLUME 84.6 FL (78-98); MEAN PLATELET VOLUME 9.5 FL (7.4-10.4); MONOCYTES # (AUTO) 0.4 X10'3 (0-0.9); MONOCYTES % (AUTO) 5.7 % (2-12); NEUTROPHILS # (AUTO) 6.1 X10'3 (1.8-7.7); NEUTROPHILS % (AUTO) 78.7 % (42-75); PLATELET COUNT 207 X10'3 (140-440); RED BLOOD COUNT 3.57 X10'6 (4.70-6.10); RED CELL DISTRIBUTION WIDTH 18.4 % (11.5-14.5); WHITE BLOOD COUNT 7.8 X10'3 (4.5-11.0)
[2018-03-25 07:39] LABS: ALANINE AMINOTRANSFERASE 21 U/L (12-78); ALBUMIN 2.9 G/DL (3.4-5.0); ALBUMIN/GLOBULIN RATIO 0.8 (1.1-1.5); ALKALINE PHOSPHATASE 103 IU/L (46-116); ANION GAP 11 (8-16); ASPARTATE AMINO TRANSFERASE 18 U/L (10-37); BILIRUBIN,TOTAL 0.4 MG/DL (0.1-1.0); BLOOD UREA NITROGEN 15 MG/DL (7-18); BUN/CREATININE RATIO 15.5 (5.4-32.0); CALCIUM 8.8 MG/DL (8.5-10.1); CHLORIDE 106 MMOL/L (99-107); CREATININE 0.97 MG/DL (0.60-1.10); GLUCOSE 131 MG/DL (70-104); POTASSIUM 4.1 MMOL/L (3.5-5.1); SODIUM 141 MMOL/L (135-145); TOTAL CARBON DIOXIDE 23.8 MMOL/L (24-32); TOTAL PROTEIN 6.6 G/DL (6.4-8.2); eGFR 75 ML/MIN
[2018-03-25] MEDS: CefTRIAXone/D5W-Rocephin 1gm 50 ML IV SCH ×2 (09:20→20:02)
[2018-03-25] MEDS: metoclopramide 5 mg/ml inj IV PRN (09:20)
[2018-03-25] MEDS: pantoprazole 40mg Tablet.DR PO SCH (09:21)
[2018-03-25] MEDS: docusate sod 100mg capsule PO SCH ×3 (09:21→21:23)
[2018-03-25] MEDS: methenamine hippurate 1gm tablet PO SCH ×2 (09:21→20:12)
[2018-03-25] MEDS: lactobacillus rhamnosus 10,000 MMU CELLS/CAPSULE PO SCH ×2 (09:21→20:05)
[2018-03-25] MEDS: rivaroxaban 20mg tablet PO SCH (09:21)
[2018-03-25] MEDS: metoprolol tartrate 25mg tablet PO SCH ×2 (09:21→20:05)
[2018-03-25] MEDS: vitamin D (cholecalciferol) 1,000 unit tablet PO SCH (09:21)
[2018-03-25 10:00] VITALS: BP 151/60
[2018-03-25] MEDS: levoFLOXACIN 500mg tablet PO SCH (11:30)
--- NOTE | 2018-03-25 12:43 | NUR ---
Initial: Pt admitted with UTI and ALOC. Pt with low Keith 9 and sacrum PU, wound rt ischium, bilat scrotum, and surgical wound to rt lower abdomen. Pt with A1c 7.6. Per physical assessment pt A/O x2. DM and protein education not appropriate at this time. Pt currently on a CHO controlled diet with documented PO intake 50-75% likely meeting nutrient needs. Pt with colostomy with documented 510 mL stool output. Will continue to follow. Recommendations: 1) Continue with CHO controlled diet 2) Monitor need for ONS 3) Monitor for appropriateness of protein/DM ed prior to d/c 4) Wt per rx Addendum: 03/25/18 at [address] Amended: Links added.
--- NOTE | 2018-03-25 18:05 | NUR ---
Problems reprioritized. Patient report given, questions answered & plan of care reviewed with WAGNER MATHEWS.
[2018-03-25 18:34] VITALS: BP 125/65
--- NOTE | 2018-03-25 18:35 | NUR ---
Patient in room ORTHO 4011. I have received report from Chaim MATHEWS and had the opportunity to ask questions and assume patient care. Patient's at bedside, patient states finished dinner, will continue to monitor.
[2018-03-25] MEDS: atorvastatin 10mg tablet PO SCH (20:06)
[2018-03-25] MEDS: insulin glargine (Lantus) pen - multi-dose SQ SCH (21:00)
[2018-03-25] MEDS: acetaminophen 325mg tablet PO PRN (21:34)
[2018-03-25 22:00] VITALS: BP 137/65
[2018-03-26] MEDS: normal saline 1000ml 1,000 ML IV SCH (01:36)
[2018-03-26 06:00] VITALS: BP 118/54
--- NOTE | 2018-03-26 06:57 | NUR ---
Problems reprioritized. Patient report given, questions answered & plan of care reviewed with Shawnee RN. Patient resting with Cpap on. Introduced to oncoming RN.
[2018-03-26 08:52] LABS: ALANINE AMINOTRANSFERASE 28 U/L (12-78); ALBUMIN/GLOBULIN RATIO 0.8 (1.1-1.5); ALKALINE PHOSPHATASE 123 IU/L (46-116); ANION GAP 13 (8-16); ASPARTATE AMINO TRANSFERASE 24 U/L (10-37); BASOPHILS % (AUTO) 0.2 % (0-1); BILIRUBIN,TOTAL 0.6 MG/DL (0.1-1.0); BLOOD UREA NITROGEN 17 MG/DL (7-18); BUN/CREATININE RATIO 16.7 (5.4-32.0); CALCIUM 8.7 MG/DL (8.5-10.1); CHLORIDE 106 MMOL/L (99-107); CREATININE 1.02 MG/DL (0.60-1.10); EOSINOPHILS # (AUTO) 0.2 X10'3 (0-0.9); GLUCOSE 120 MG/DL (70-104); HEMATOCRIT 30.7 % (42.0-52.0); HEMOGLOBIN 10.2 g/dl (14.0-17.9); LYMPHOCYTES # (AUTO) 0.7 X10'3 (1.1-4.8); LYMPHOCYTES % (AUTO) 7.8 % (21-51); MEAN CORPUSCULAR HEMOGLOBIN 28.4 PG (27.0-31.0); MEAN CORPUSCULAR HGB CONC 33.3 % (33.0-36.5); MEAN CORPUSCULAR VOLUME 85.2 FL (78-98); MEAN PLATELET VOLUME 9.5 FL (7.4-10.4); MONOCYTES # (AUTO) 0.5 X10'3 (0-0.9); MONOCYTES % (AUTO) 5.3 % (2-12); NEUTROPHILS # (AUTO) 7.5 X10'3 (1.8-7.7); NEUTROPHILS % (AUTO) 84.7 % (42-75); PLATELET COUNT 209 X10'3 (140-440); POTASSIUM 3.9 MMOL/L (3.5-5.1); RED CELL DISTRIBUTION WIDTH 17.5 % (11.5-14.5); SODIUM 141 MMOL/L (135-145); TOTAL CARBON DIOXIDE 22.4 MMOL/L (24-32); TOTAL PROTEIN 6.7 G/DL (6.4-8.2); WHITE BLOOD COUNT 8.9 X10'3 (4.5-11.0); eGFR 71 ML/MIN
[2018-03-26] MEDS: pantoprazole 40mg Tablet.DR PO SCH (09:32)
[2018-03-26] MEDS: docusate sod 100mg capsule PO SCH ×2 (09:33→20:50)
[2018-03-26] MEDS: lactobacillus rhamnosus 10,000 MMU CELLS/CAPSULE PO SCH ×2 (09:33→20:50)
[2018-03-26] MEDS: vitamin D (cholecalciferol) 1,000 unit tablet PO SCH (09:34)
[2018-03-26] MEDS: rivaroxaban 20mg tablet PO SCH (09:34)
[2018-03-26] MEDS: methenamine hippurate 1gm tablet PO SCH ×2 (09:34→20:50)
[2018-03-26] MEDS: CefTRIAXone/D5W-Rocephin 1gm 50 ML IV SCH ×2 (09:35→20:50)
[2018-03-26] MEDS: metoprolol tartrate 25mg tablet PO SCH ×2 (09:39→20:49)
[2018-03-26 10:00] VITALS: BP 144/64
[2018-03-26] MEDS: metoclopramide 5 mg/ml inj IV PRN (13:53)
--- NOTE | 2018-03-26 16:43 | NUR ---
Pt/SO seen by JOHAN for written/verbal high protein/DM eds. RD contact information provided. Pt declines additional proteins and reports disliking string beans; JOHAN d/w dietary. PO 50% avg meals needing assistance r/t weakness and unable to close palms. LBM 03/25. Will continue to monitor. Recommendations: 1) Continue with CHO controlled diet 2) Monitor need for ONS 3) Wt per rx Addendum: 03/26/18 at [address] Amended: Links added.
[2018-03-26] MEDS: levoFLOXACIN 500mg tablet PO SCH (17:07)
[2018-03-26 18:00] VITALS: BP 151/67
--- NOTE | 2018-03-26 18:36 | NUR ---
Received report from Shawnee MATHEWS, pt is awake on RA, at bedside, in no apparent distress, call light and items of freq use within reach.
[2018-03-26] MEDS: atorvastatin 10mg tablet PO SCH (20:50)
[2018-03-26] MEDS: insulin glargine (Lantus) pen - multi-dose SQ SCH (21:00)
--- NOTE | 2018-03-26 22:30 | NUR ---
pt refused vital signs, he is confused, agitated, and wanting to call his . Keep reorienting him that he is in the hospital
[2018-03-27] MEDS: normal saline 1000ml 1,000 ML IV SCH (02:41)
[2018-03-27 04:00] VITALS: BP 174/85
[2018-03-27 05:03] VITALS: BP 127/57
--- NOTE | 2018-03-27 06:25 | NUR ---
Problems reprioritized. Patient report given, questions answered & plan of care reviewed with Shawnee MATHEWS.
[2018-03-27 07:39] LABS: BASOPHILS % (AUTO) 0.1 % (0-1); EOSINOPHILS # (AUTO) 0.1 X10'3 (0-0.9); EOSINOPHILS % (AUTO) 1.1 % (0-6); HEMATOCRIT 30.7 % (42.0-52.0); HEMOGLOBIN 9.8 g/dl (14.0-17.9); LYMPHOCYTES # (AUTO) 0.7 X10'3 (1.1-4.8); LYMPHOCYTES % (AUTO) 8.6 % (21-51); MEAN CORPUSCULAR HEMOGLOBIN 27.2 PG (27.0-31.0); MEAN CORPUSCULAR HGB CONC 31.8 % (33.0-36.5); MEAN CORPUSCULAR VOLUME 85.4 FL (78-98); MEAN PLATELET VOLUME 9.9 FL (7.4-10.4); MONOCYTES # (AUTO) 0.5 X10'3 (0-0.9); MONOCYTES % (AUTO) 5.7 % (2-12); NEUTROPHILS # (AUTO) 7.3 X10'3 (1.8-7.7); NEUTROPHILS % (AUTO) 84.5 % (42-75); PLATELET COUNT 207 X10'3 (140-440); RED CELL DISTRIBUTION WIDTH 17.5 % (11.5-14.5); WHITE BLOOD COUNT 8.6 X10'3 (4.5-11.0)
[2018-03-27 07:58] LABS: ALANINE AMINOTRANSFERASE 35 U/L (12-78); ALBUMIN 2.9 G/DL (3.4-5.0); ALBUMIN/GLOBULIN RATIO 0.8 (1.1-1.5); ALKALINE PHOSPHATASE 119 IU/L (46-116); ANION GAP 12 (8-16); ASPARTATE AMINO TRANSFERASE 28 U/L (10-37); BILIRUBIN,TOTAL 0.6 MG/DL (0.1-1.0); BLOOD UREA NITROGEN 19 MG/DL (7-18); BUN/CREATININE RATIO 17.9 (5.4-32.0); CALCIUM 8.9 MG/DL (8.5-10.1); CHLORIDE 106 MMOL/L (99-107); CREATININE 1.06 MG/DL (0.60-1.10); GLUCOSE 127 MG/DL (70-104); POTASSIUM 3.5 MMOL/L (3.5-5.1); SODIUM 141 MMOL/L (135-145); TOTAL CARBON DIOXIDE 22.6 MMOL/L (24-32); TOTAL PROTEIN 6.6 G/DL (6.4-8.2); eGFR 68 ML/MIN
[2018-03-27] MEDS: docusate sod 100mg capsule PO SCH ×2 (09:30→20:37)
[2018-03-27] MEDS: metoprolol tartrate 25mg tablet PO SCH ×2 (09:30→20:39)
[2018-03-27] MEDS: rivaroxaban 20mg tablet PO SCH (09:30)
[2018-03-27] MEDS: pantoprazole 40mg Tablet.DR PO SCH (09:30)
[2018-03-27] MEDS: vitamin D (cholecalciferol) 1,000 unit tablet PO SCH (09:30)
[2018-03-27] MEDS: lactobacillus rhamnosus 10,000 MMU CELLS/CAPSULE PO SCH ×2 (09:30→20:37)
[2018-03-27 10:16] VITALS: BP 144/66
[2018-03-27] MEDS: levoFLOXACIN 500mg tablet PO SCH (11:58)
[2018-03-27] MEDS: CefTRIAXone/D5W-Rocephin 1gm 50 ML IV SCH ×2 (11:58→20:37)
[2018-03-27] MEDS: methenamine hippurate 1gm tablet PO SCH ×2 (12:07→20:37)
--- NOTE | 2018-03-27 12:20 | NUR ---
meds did not save during administration. The pt and meds were scanned prior to administration.
--- NOTE | 2018-03-27 13:48 | NUR ---
JOHAN d/w RN for MVM for wound healing needs per MD approval. Pt/SO seen by JOHAN for written/verbal high protein/DM eds. RD contact information provided. Pt declines additional proteins and reports disliking string beans; JOHAN d/w dietary. PO 50% avg meals needing assistance r/t weakness and unable to close palms. LBM 03/25. Will continue to monitor. Recommendations: 1) Continue with CHO controlled diet 2) Monitor need for ONS 3) MVI for wounds 4) Wt per rx Addendum: 03/27/18 at [address] Amended: Links added.
[2018-03-27 14:16] LABS: INR 1.8 INR; PROTHROMBIN TIME 17.6 SECONDS (9.0-12.0)
--- NOTE | 2018-03-27 16:13 | NUR ---
PAGER ID: [phone] MESSAGE: [phone] [phone] re Mr Feliciano Moran- his brought the bottle of baclofen- 20 mg TID. Pt is requesting it due to muscle spasms
[2018-03-27] MEDS: acetaminophen 325mg tablet PO PRN (16:21)
[2018-03-27 17:00] VITALS: BP 108/84
[2018-03-27] MEDS: atorvastatin 10mg tablet PO SCH (20:37)
[2018-03-27] MEDS: insulin glargine (Lantus) pen - multi-dose SQ SCH (21:00)
[2018-03-27 22:00] VITALS: BP 147/52
[2018-03-28] MEDS: normal saline 1000ml 1,000 ML IV SCH (03:14)
[2018-03-28] MEDS: acetaminophen 325mg tablet PO PRN ×2 (05:25→23:54)
--- NOTE | 2018-03-28 06:10 | NUR ---
Problems reprioritized. Patient report given, questions answered & plan of care reviewed with Evangelina MATHEWS.
[2018-03-28 06:55] LABS: BASOPHILS % (AUTO) 0.1 % (0-1); EOSINOPHILS # (AUTO) 0.2 X10'3 (0-0.9); EOSINOPHILS % (AUTO) 2.7 % (0-6); HEMATOCRIT 29.2 % (42.0-52.0); HEMOGLOBIN 9.6 g/dl (14.0-17.9); LYMPHOCYTES # (AUTO) 0.7 X10'3 (1.1-4.8); LYMPHOCYTES % (AUTO) 9.2 % (21-51); MEAN CORPUSCULAR HEMOGLOBIN 27.8 PG (27.0-31.0); MEAN CORPUSCULAR HGB CONC 32.7 % (33.0-36.5); MEAN CORPUSCULAR VOLUME 84.9 FL (78-98); MEAN PLATELET VOLUME 10.1 FL (7.4-10.4); MONOCYTES # (AUTO) 0.4 X10'3 (0-0.9); MONOCYTES % (AUTO) 5.7 % (2-12); NEUTROPHILS # (AUTO) 6.5 X10'3 (1.8-7.7); NEUTROPHILS % (AUTO) 82.3 % (42-75); PLATELET COUNT 222 X10'3 (140-440); RED BLOOD COUNT 3.44 X10'6 (4.70-6.10); RED CELL DISTRIBUTION WIDTH 17.4 % (11.5-14.5); WHITE BLOOD COUNT 7.8 X10'3 (4.5-11.0)
[2018-03-28 07:11] LABS: ALANINE AMINOTRANSFERASE 46 U/L (12-78); ALBUMIN 2.7 G/DL (3.4-5.0); ALBUMIN/GLOBULIN RATIO 0.8 (1.1-1.5); ALKALINE PHOSPHATASE 115 IU/L (46-116); ANION GAP 12 (8-16); ASPARTATE AMINO TRANSFERASE 32 U/L (10-37); BILIRUBIN,TOTAL 0.6 MG/DL (0.1-1.0); BLOOD UREA NITROGEN 20 MG/DL (7-18); CALCIUM 8.5 MG/DL (8.5-10.1); CHLORIDE 104 MMOL/L (99-107); CREATININE 1.11 MG/DL (0.60-1.10); GLUCOSE 105 MG/DL (70-104); POTASSIUM 3.4 MMOL/L (3.5-5.1); SODIUM 139 MMOL/L (135-145); TOTAL CARBON DIOXIDE 23.3 MMOL/L (24-32); TOTAL PROTEIN 6.1 G/DL (6.4-8.2); eGFR 64 ML/MIN
[2018-03-28] MEDS: pantoprazole 40mg Tablet.DR PO SCH (09:05)
[2018-03-28] MEDS: CefTRIAXone/D5W-Rocephin 1gm 50 ML IV SCH ×2 (09:06→19:27)
[2018-03-28] MEDS: rivaroxaban 20mg tablet PO SCH (09:06)
[2018-03-28] MEDS: docusate sod 100mg capsule PO SCH ×2 (09:06→19:32)
[2018-03-28] MEDS: vitamin D (cholecalciferol) 1,000 unit tablet PO SCH (09:06)
[2018-03-28] MEDS: lactobacillus rhamnosus 10,000 MMU CELLS/CAPSULE PO SCH ×2 (09:06→19:32)
[2018-03-28] MEDS: metoprolol tartrate 25mg tablet PO SCH ×2 (09:12→19:33)
[2018-03-28 10:37] VITALS: BP 150/71
[2018-03-28] MEDS: methenamine hippurate 1gm tablet PO SCH ×2 (10:41→19:33)
[2018-03-28] MEDS: levoFLOXACIN 500mg tablet PO SCH (10:41)
[2018-03-28 11:12] VITALS: BP 107/42
--- NOTE | 2018-03-28 14:29 | NUR ---
COLOSTOMY EMPTIED OF 500 CC MUSHY, BROWN STOOL DURING THIS SHIFT. SRINIVASAN CATH PATENT AND DRAINING YELLOW URINE.
[2018-03-28 18:00] VITALS: BP 132/58
--- NOTE | 2018-03-28 18:23 | NUR ---
REPORT REC'D FROM REID WRIGHT.
--- NOTE | 2018-03-28 18:53 | NUR ---
Problems reprioritized. Patient report given, questions answered & plan of care reviewed with LORY Little RN.
[2018-03-28] MEDS: atorvastatin 10mg tablet PO SCH (19:32)
[2018-03-28] MEDS: insulin glargine (Lantus) pen - multi-dose SQ SCH (21:00)
[2018-03-28 22:00] VITALS: BP 136/78
--- NOTE | 2018-03-29 05:43 | NUR ---
WOUND CARE TO RIGHT ISCHIUM, PACKED PER WOUND CARE ORDERS IN CHART WITH 1/2IN IODOFORM GUAZE AND COVERED WITH ABD PAD AND FOAM DSG. THERE ARE TWO LENGTHS OF GUAZE WITH ENDS PROTRUDING. (ONE SHORT SECTION AND ONE VERY LONG SECTION.)
--- NOTE | 2018-03-29 06:40 | NUR ---
REPORT GIVEN TO REID DIAZ.
[2018-03-29] MEDS: lactobacillus rhamnosus 10,000 MMU CELLS/CAPSULE PO SCH (08:12)
[2018-03-29] MEDS: docusate sod 100mg capsule PO SCH (08:12)
[2018-03-29] MEDS: CefTRIAXone/D5W-Rocephin 1gm 50 ML IV SCH (08:12)
[2018-03-29] MEDS: pantoprazole 40mg Tablet.DR PO SCH (08:12)
[2018-03-29] MEDS: methenamine hippurate 1gm tablet PO SCH (08:13)
[2018-03-29] MEDS: rivaroxaban 20mg tablet PO SCH (08:14)
[2018-03-29] MEDS: vitamin D (cholecalciferol) 1,000 unit tablet PO SCH (08:14)
[2018-03-29 08:17] VITALS: BP_SYST 134
[2018-03-29] MEDS: metoprolol tartrate 25mg tablet PO SCH (08:17)
[2018-03-29] MEDS ORDERED: LEVO500T89 PO (11:00)
--- NOTE | 2018-03-29 11:25 | NUR ---
Received discharge instructions from . Pt to continue Levaquin x3 more days. RX for Levaquin given to Shad at [facility] to fill prior to dc from hospital. Informed and pt of discharge. Picked up stored meds in Pharmacy. Reviewed discharge instructions with pt and . IV right hand discontinued with cannula intact. Held pressure on hand for approximately 5 minutes as pt is taking Xarelto. IV insertion site appears benign. Pt assisted using Shoette to electric w/c by Tacos in PT. Pt discharged via electric w/c to front lobby and private vehicle by JOSE FRANCISCO Ahn.
--- NOTE | 2018-03-29 11:35 | NUR ---
Pictures were taken less then 24hrs ago and new packing applied Addendum: 03/29/18 at 1137 by Bere Valenzuela RN Amended: Links added.
[2018-03-29] MEDS: levoFLOXACIN 500mg tablet PO SCH (13:02)
== END 2018-03-29 13:48 | disposition home health service (06) | DRG 917 ==
LOC: ER 22:12 → ED HOLD 03-23 02:41 → ORTHO 4S 03-23 04:03
PROVIDERS: ADMIT Family Medicine; ATTEND Family Medicine
PROC: 5A09357 Assistance with Respiratory Ventilation, Less than 24 Consecutive Hours, Continuous Positive Airway Pressure (ICD-10-PCS; principal; 2018-03-27)
DX: T42.8X1A Poisoning by antiparkinsonism drugs and other central muscle-tone depressants, accidental (unintentional), initial encounter (principal); G93.41 Metabolic encephalopathy; G82.50 Quadriplegia, unspecified; I11.0 Hypertensive heart disease with heart failure; D64.9 Anemia, unspecified; E11.9 Type 2 diabetes mellitus without complications; E78.00 Pure hypercholesterolemia, unspecified; E78.5 Hyperlipidemia, unspecified; E87.6 Hypokalemia; F03.90 Unspecified dementia, unspecified severity, without behavioral disturbance, psychotic disturbance, mood disturbance, and anxiety; G89.4 Chronic pain syndrome; R82.71 Bacteriuria; H54.7 Unspecified visual loss; I25.10 Atherosclerotic heart disease of native coronary artery without angina pectoris; B96.5 Pseudomonas (aeruginosa) (mallei) (pseudomallei) as the cause of diseases classified elsewhere; I16.0 Hypertensive urgency; I48.91 Unspecified atrial fibrillation; I50.9 Heart failure, unspecified; L89.159 Pressure ulcer of sacral region, unspecified stage; Z16.23 Resistance to quinolones and fluoroquinolones; Z16.24 Resistance to multiple antibiotics; Z93.3 Colostomy status; Z95.0 Presence of cardiac pacemaker; Z88.8 Allergy status to other drugs, medicaments and biological substances; Z88.2 Allergy status to sulfonamides; Z79.899 Other long term (current) drug therapy; Z79.01 Long term (current) use of anticoagulants; Y92.89 Other specified places as the place of occurrence of the external cause
CPT/HCPCS: 36415; 70450; 71045; 80053; 81001; 82948; 83605; 83735; 83880; 84100; 84145; 84443; 84484; 85025; 85610; 85730; 87040; 87070; 87077; 87088; 87186; 93005; 96372; 96374; 97110; 97162; 97530; 99285; G0378; J0360; J0696; J1815; J1956; J2765; J7030

== ENCOUNTER 2018-04-08 11:00 | Day surgery (SDC) | payer MEDICARE, OTHER ==
[~2018-04-08 11:00] MED LIST changes: +LEVO500T89 PO; -NITR100C6 PO
--- NOTE | 2018-04-08 13:37 | NUR ---
1100 Patient and came safely into [facility]. Patient admitted to outpatient wound care clinic for follow-up visit with physician. Patient placed in isolation per isolation protocol. Dressing removed, wound cleansed. Patient assessed for changes in conditions, medications and medical history. Patient showed no s/s of distress at time of assessment. 1210 at bedside accompanied by RN. Wounds assessed, time out performed and debridement done today as detailed in the physician progress/procedure note. Plan of care discussed with patient. Dressings placed by MD. Patient instructed on the signs and symptoms of infection and to call the Wound Center if any occur or to go to the ED if we are closed: Increased pain in wound Increase in drainage from the wound Redness in the skin surrounding the wound Bleeding from the wound Temperature of 101 or greater Patient instructed that the weight of their body puts a large amount of pressure on their wounds. This pressure keeps the new tissue from growing and inhibits new blood vessels from forming. Explained that, if they continue to bear weight on a body part that has a wound, the time it takes to heal the wound increases, the wound may get worse or the wound may not heal at all. Patient verbalized understanding of all discharge instructions and plan of care. Patient ambulated independently out to [facility] and is in stable condition with no sign or symptom of distress at time of discharge.
== END 2018-04-08 13:14 | disposition home or self-care (01) ==
LOC: WOUND CARE 11:00
PROVIDERS: ATTEND Surgery
DX: E11.622 Type 2 diabetes mellitus with other skin ulcer (principal); L89.314 Pressure ulcer of right buttock, stage 4; L98.411 Non-pressure chronic ulcer of buttock limited to breakdown of skin; D63.8 Anemia in other chronic diseases classified elsewhere; L30.4 Erythema intertrigo; I11.0 Hypertensive heart disease with heart failure; I25.10 Atherosclerotic heart disease of native coronary artery without angina pectoris; I50.9 Heart failure, unspecified; E78.5 Hyperlipidemia, unspecified; E78.00 Pure hypercholesterolemia, unspecified; G82.50 Quadriplegia, unspecified; G47.30 Sleep apnea, unspecified; I48.91 Unspecified atrial fibrillation; G89.4 Chronic pain syndrome; Z79.01 Long term (current) use of anticoagulants; Z79.84 Long term (current) use of oral hypoglycemic drugs; Z79.899 Other long term (current) drug therapy; Z95.1 Presence of aortocoronary bypass graft; Z95.5 Presence of coronary angioplasty implant and graft; Z95.0 Presence of cardiac pacemaker
CPT/HCPCS: 36416; 82948; 97597; A6266; A6240; A6243

== ENCOUNTER 2018-04-22 10:44 | Day surgery (SDC) | payer MEDICARE, OTHER ==
[2018-04-22] MEDS ORDERED: LIDOcaine/PRILOcaine 5gm cream TP ONE (12:03)
--- NOTE | 2018-04-22 14:53 | NUR ---
Patient arrived safely into [facility] via wheelchair, accompanied by spouse. Patient admitted to outpatient wound care for physician visit. Patient was safely moved to [facility] with a Guillaume lift. Dressing removed, wound cleansed and Emla applied per order. Patient assessed for changes in conditions, medications and medical history. Dr. Farooq at bedside accompanied by RN. Wound assessed, time out performed by MD/RN. Wound debrided as detailed in the physician progress/procedure note. Plan of care discussed with patient. Dressings placed per MD orders. Patient instructed on the signs and symptoms of infection and to call the Wound Center if any occur or to go to the ED if we are closed: Increased pain in wound Increase in drainage from the wound Redness in the skin surrounding the wound Bleeding from the wound Temperature of 101 or greater Patient instructed that elevated blood sugars delay healing of the wound and can cause further complications including but not limited to amputation of toes or feet. Patient instructed that the weight of their body puts a large amount of pressure on their wounds. This pressure keeps the new tissue from growing and inhibits new blood vessels from forming. Explained that, if they continue to bear weight on a body part that has a wound, the time it takes to heal the wound increases, the wound may get worse or the wound may not heal at all. Patient verbalized understanding of all discharge instructions and plan of care and ambulated independently out to [facility] in stable condition with no sign or symptom of distress at time of discharge. Addendum: 04/22/18 at 1457 by Maricruz Posada RN Amended: Links added.
== END 2018-04-22 12:45 | disposition home or self-care (01) ==
LOC: WOUND CARE 10:44
PROVIDERS: ATTEND Surgery
DX: E11.622 Type 2 diabetes mellitus with other skin ulcer (principal); L89.314 Pressure ulcer of right buttock, stage 4; L97.411 Non-pressure chronic ulcer of right heel and midfoot limited to breakdown of skin; D63.8 Anemia in other chronic diseases classified elsewhere; L30.4 Erythema intertrigo; I11.0 Hypertensive heart disease with heart failure; I25.10 Atherosclerotic heart disease of native coronary artery without angina pectoris; I50.9 Heart failure, unspecified; E78.5 Hyperlipidemia, unspecified; E78.00 Pure hypercholesterolemia, unspecified; G82.50 Quadriplegia, unspecified; G47.30 Sleep apnea, unspecified; I48.91 Unspecified atrial fibrillation; Z79.01 Long term (current) use of anticoagulants; Z79.84 Long term (current) use of oral hypoglycemic drugs; Z79.899 Other long term (current) drug therapy; Z95.1 Presence of aortocoronary bypass graft; Z95.5 Presence of coronary angioplasty implant and graft
CPT/HCPCS: 36416; 82948; 97597; 97598; A6266; A6243

== ENCOUNTER 2018-05-06 10:50 | Day surgery (SDC) | payer MEDICARE, OTHER ==
--- NOTE | 2018-05-06 15:54 | NUR ---
Patient arrived safely into [facility] via wheelchair, accompanied by spouse. Patient admitted to outpatient wound care clinic for physician visit with Faizan Farooq MD. Dressing removed and wound cleansed. Patient assessed for changes in conditions, medications and medical history. Dr. Farooq at bedside accompanied by RN. Wound assessed, time out performed by MD/RN. Wound debrided as detailed in the physician progress/procedure note. Plan of care discussed with patient. Dressings placed per MD orders. Patient instructed on the signs and symptoms of infection and to call the Wound Center if any occur or to go to the ED if we are closed: Increased pain in wound Increase in drainage from the wound Redness in the skin surrounding the wound Bleeding from the wound Temperature of 101 or greater Patient instructed that elevated blood sugars delay healing of the wound and can cause further complications including but not limited to amputation of toes or feet. Patient instructed that the weight of their body puts a large amount of pressure on their wounds. This pressure keeps the new tissue from growing and inhibits new blood vessels from forming. Explained that, if they continue to bear weight on a body part that has a wound, the time it takes to heal the wound increases, the wound may get worse or the wound may not heal at all. Patient verbalized understanding of all discharge instructions and plan of care and ambulated independently out to [facility] in stable condition with no sign or symptom of distress at time of discharge. Addendum: 05/06/18 at 1600 by Maricruz Posada RN Amended: Links added.
== END 2018-05-06 13:28 | disposition home or self-care (01) ==
LOC: WOUND CARE 10:50
PROVIDERS: ATTEND Surgery
DX: E11.622 Type 2 diabetes mellitus with other skin ulcer (principal); L89.314 Pressure ulcer of right buttock, stage 4; L98.411 Non-pressure chronic ulcer of buttock limited to breakdown of skin; L30.4 Erythema intertrigo; I11.0 Hypertensive heart disease with heart failure; I25.10 Atherosclerotic heart disease of native coronary artery without angina pectoris; I50.9 Heart failure, unspecified; E78.5 Hyperlipidemia, unspecified; E78.00 Pure hypercholesterolemia, unspecified; G82.50 Quadriplegia, unspecified; G47.30 Sleep apnea, unspecified; I48.91 Unspecified atrial fibrillation; Z79.01 Long term (current) use of anticoagulants; Z79.84 Long term (current) use of oral hypoglycemic drugs; Z79.899 Other long term (current) drug therapy; Z95.1 Presence of aortocoronary bypass graft; Z95.5 Presence of coronary angioplasty implant and graft
CPT/HCPCS: 36416; 82948; 97597; A6266; A6243

== ENCOUNTER 2018-05-20 11:00 | Day surgery (SDC) | payer MEDICARE, OTHER ==
--- NOTE | 2018-05-20 14:11 | NUR ---
[facility] Patient admitted to outpatient wound care for physician visit with Faizan Farooq MD. Dressing removed, wound cleansed and lidocaine applied per order. Patient assessed for changes in conditions, medications and medical history. Dr. Farooq at bedside accompanied by RN. Wound assessed, time out performed by MD/RN. Wound debrided as detailed in the physician progress/procedure note. Plan of care discussed with patient. Dressings placed per MD orders. Patient instructed on the signs and symptoms of infection and to call the Wound Center if any occur or to go to the ED if we are closed: Increased pain in wound Increase in drainage from the wound Redness in the skin surrounding the wound Bleeding from the wound Temperature of 101 or greater Patient instructed that elevated blood sugars delay healing of the wound and can cause further complications including but not limited to amputation of toes or feet. Patient instructed that the weight of their body puts a large amount of pressure on their wounds. This pressure keeps the new tissue from growing and inhibits new blood vessels from forming. Explained that, if they continue to bear weight on a body part that has a wound, the time it takes to heal the wound increases, the wound may get worse or the wound may not heal at all. Patient verbalized understanding of all discharge instructions and plan of care. Patient left in stable condition with no sign or symptom of distress at time of discharge. Addendum: 05/20/18 at 1415 by Maricruz Posada RN Amended: Links added.
== END 2018-05-20 12:59 | disposition home or self-care (01) ==
LOC: WOUND CARE 11:00
PROVIDERS: ATTEND Surgery
DX: E11.622 Type 2 diabetes mellitus with other skin ulcer (principal); L89.314 Pressure ulcer of right buttock, stage 4; L98.411 Non-pressure chronic ulcer of buttock limited to breakdown of skin; L30.4 Erythema intertrigo; I11.0 Hypertensive heart disease with heart failure; I25.10 Atherosclerotic heart disease of native coronary artery without angina pectoris; I50.9 Heart failure, unspecified; E78.5 Hyperlipidemia, unspecified; E78.00 Pure hypercholesterolemia, unspecified; G82.50 Quadriplegia, unspecified; G47.30 Sleep apnea, unspecified; I48.91 Unspecified atrial fibrillation; E66.9 Obesity, unspecified; Z79.01 Long term (current) use of anticoagulants; Z79.84 Long term (current) use of oral hypoglycemic drugs; Z79.899 Other long term (current) drug therapy; Z95.1 Presence of aortocoronary bypass graft; Z95.5 Presence of coronary angioplasty implant and graft
CPT/HCPCS: 36416; 82948; 97597; A6266; A6243

== ENCOUNTER 2018-06-03 10:55 | Day surgery (SDC) | payer MEDICARE, OTHER ==
--- NOTE | 2018-06-03 15:28 | NUR ---
Patient arrived via wheelchair accompanied by spouse. Patient admitted to outpatient wound care for physician visit with Faizan Farooq MD. Patient placed in [facility] with a florencia lift. Dressing removed and wound cleansed. Patient assessed for changes in conditions, medications and medical history. Dr. Farooq at bedside accompanied by RN. Wound assessed, time out performed by MD/RN. Wound debrided as detailed in the physician progress/procedure note. Plan of care discussed with patient. Dressings placed per MD orders. Patient instructed on the signs and symptoms of infection and to call the Wound Center if any occur or to go to the ED if we are closed: Increased pain in wound Increase in drainage from the wound Redness in the skin surrounding the wound Bleeding from the wound Temperature of 101 or greater Patient instructed that elevated blood sugars delay healing of the wound and can cause further complications including but not limited to amputation of toes or feet. Patient instructed that the weight of their body puts a large amount of pressure on their wounds. This pressure keeps the new tissue from growing and inhibits new blood vessels from forming. Explained that, if they continue to bear weight on a body part that has a wound, the time it takes to heal the wound increases, the wound may get worse or the wound may not heal at all. Patient verbalized understanding of all discharge instructions and plan of care. Patient transferred back to wheelchair with florencia lift. Patient left in stable condition with no sign or symptom of distress at time of discharge. Addendum: 06/03/18 at 1533 by Maricruz Posada RN Amended: Links added.
== END 2018-06-03 12:33 | disposition home or self-care (01) ==
LOC: WOUND CARE 10:55
PROVIDERS: ATTEND Surgery
DX: E11.622 Type 2 diabetes mellitus with other skin ulcer (principal); L89.314 Pressure ulcer of right buttock, stage 4; L98.411 Non-pressure chronic ulcer of buttock limited to breakdown of skin; L30.4 Erythema intertrigo; I11.0 Hypertensive heart disease with heart failure; I25.10 Atherosclerotic heart disease of native coronary artery without angina pectoris; I50.9 Heart failure, unspecified; E78.5 Hyperlipidemia, unspecified; E78.00 Pure hypercholesterolemia, unspecified; G82.50 Quadriplegia, unspecified; G47.30 Sleep apnea, unspecified; I48.91 Unspecified atrial fibrillation; E66.9 Obesity, unspecified; Z79.01 Long term (current) use of anticoagulants; Z79.84 Long term (current) use of oral hypoglycemic drugs; Z79.899 Other long term (current) drug therapy; Z95.1 Presence of aortocoronary bypass graft; Z95.5 Presence of coronary angioplasty implant and graft
CPT/HCPCS: 36416; 82948; 97597; A6021

== ENCOUNTER 2018-06-09 02:31 | Outpatient (CLI) | payer MEDICARE, OTHER | END 2018-06-09 23:59 | disposition home or self-care (01) | LOC: DIABETIC 02:31 | PROVIDERS: ATTEND Family Medicine | DX: E11.9 Type 2 diabetes mellitus without complications (principal); I11.0 Hypertensive heart disease with heart failure; I50.9 Heart failure, unspecified; E78.5 Hyperlipidemia, unspecified; I67.9 Cerebrovascular disease, unspecified; Z79.84 Long term (current) use of oral hypoglycemic drugs; Z88.2 Allergy status to sulfonamides; Z91.010 Allergy to peanuts; Z95.1 Presence of aortocoronary bypass graft | CPT/HCPCS: G0108 ==

== ENCOUNTER 2018-06-17 11:00 | Day surgery (SDC) | payer MEDICARE, OTHER ==
--- NOTE | 2018-06-17 13:30 | NUR ---
Patient arrived via electric [facility] from [facility] and was admitted to outpatient wound care for physician visit with Faizan Farooq MD. Placed in contact isolation precautions and transferred via florencia lift from his chair to [facility]. Dressing removed, wound cleansed. Patient assessed for changes in conditions, medications and medical history. 1304 - blood glucose 131. Patient instructed that elevated blood sugars delay healing of the wound and can cause further complications including but not limited to amputation of toes or feet. 1240 - Dr. Farooq at bedside accompanied by RN. Wound assessed, time out performed by MD/RN. Wound debrided as detailed in the physician progress/procedure note. Plan of care discussed with patient. Dressings placed per MD orders. Patient instructed on the signs and symptoms of infection and to call the Wound Center if any occur or to go to the ED if we are closed: Increased pain in wound Increase in drainage from the wound Redness in the skin surrounding the wound Bleeding from the wound Temperature of 101 or greater Patient instructed that the weight of their body puts a large amount of pressure on their wounds. This pressure keeps the new tissue from growing and inhibits new blood vessels from forming. Explained that, if they continue to bear weight on a body part that has a wound, the time it takes to heal the wound increases, the wound may get worse or the wound may not heal at all. Patient verbalized understanding of all discharge instructions and plan of care and is transferred via florencia from [facility] back to his wheelchair which he then drove independently out to [facility] in stable condition with no sign or symptom of distress at time of discharge.
== END 2018-06-17 13:37 | disposition home or self-care (01) ==
LOC: WOUND CARE 11:00
PROVIDERS: ATTEND Surgery
DX: E11.622 Type 2 diabetes mellitus with other skin ulcer (principal); L89.314 Pressure ulcer of right buttock, stage 4; L98.411 Non-pressure chronic ulcer of buttock limited to breakdown of skin; L30.4 Erythema intertrigo; I11.0 Hypertensive heart disease with heart failure; I25.10 Atherosclerotic heart disease of native coronary artery without angina pectoris; I50.9 Heart failure, unspecified; E78.5 Hyperlipidemia, unspecified; E78.00 Pure hypercholesterolemia, unspecified; G82.50 Quadriplegia, unspecified; G47.30 Sleep apnea, unspecified; I48.91 Unspecified atrial fibrillation; E66.9 Obesity, unspecified; Z79.01 Long term (current) use of anticoagulants; Z79.84 Long term (current) use of oral hypoglycemic drugs; Z79.899 Other long term (current) drug therapy; Z95.1 Presence of aortocoronary bypass graft; Z95.5 Presence of coronary angioplasty implant and graft
CPT/HCPCS: 11042; 11045; 36416; 82948; A6266; A6243

== ENCOUNTER 2018-07-01 11:05 | Day surgery (SDC) | payer MEDICARE, OTHER ==
[~2018-07-01 11:05] MED LIST changes: -LEVO500T89 PO
--- NOTE | 2018-07-01 15:36 | NUR ---
Patient arrived safely into lobby via wheelchair. Patient placed safely into Guillaume lift and placed into bed. Patient admitted to outpatient wound care for physician visit with Faizan Farooq MD. Dressing removed and wound cleansed. Patient assessed for changes in conditions, medications and medical history. Dr. Farooq at bedside accompanied by RN. Wound assessed, time out performed by MD/RN. Wound debrided as detailed in the physician progress/procedure note. Plan of care discussed with patient. Dressings placed per MD orders. Patient instructed on the signs and symptoms of infection and to call the Wound Center if any occur or to go to the ED if we are closed: Increased pain in wound Increase in drainage from the wound Redness in the skin surrounding the wound Bleeding from the wound Temperature of 101 or greater Patient instructed that the weight of their body puts a large amount of pressure on their wounds. This pressure keeps the new tissue from growing and inhibits new blood vessels from forming. Explained that, if they continue to bear weight on a body part that has a wound, the time it takes to heal the wound increases, the wound may get worse or the wound may not heal at all. Patient verbalized understanding of all discharge instructions and plan of care and ambulated independently out to [facility] in stable condition with no sign or symptom of distress at time of discharge. Addendum: 07/01/18 at 1540 by Maricruz Posada RN Amended: Links added.
== END 2018-07-01 12:32 | disposition home or self-care (01) ==
LOC: WOUND CARE 11:05
PROVIDERS: ATTEND Surgery
DX: E11.622 Type 2 diabetes mellitus with other skin ulcer (principal); L89.314 Pressure ulcer of right buttock, stage 4; L98.411 Non-pressure chronic ulcer of buttock limited to breakdown of skin; L30.4 Erythema intertrigo; I11.0 Hypertensive heart disease with heart failure; I25.10 Atherosclerotic heart disease of native coronary artery without angina pectoris; I50.9 Heart failure, unspecified; E78.5 Hyperlipidemia, unspecified; E78.00 Pure hypercholesterolemia, unspecified; G82.50 Quadriplegia, unspecified; G47.30 Sleep apnea, unspecified; I48.91 Unspecified atrial fibrillation; E66.9 Obesity, unspecified; Z79.01 Long term (current) use of anticoagulants; Z79.84 Long term (current) use of oral hypoglycemic drugs; Z79.899 Other long term (current) drug therapy; Z95.1 Presence of aortocoronary bypass graft; Z95.5 Presence of coronary angioplasty implant and graft
CPT/HCPCS: 82948; 97597; 97598; A6266; A6243

== ENCOUNTER 2018-07-22 10:58 | Day surgery (SDC) | payer MEDICARE, OTHER ==
--- NOTE | 2018-07-22 14:05 | NUR ---
[facility] Patient admitted to outpatient wound care for physician visit with Faizan Farooq MD. Dressing removed and wound cleansed. Patient assessed for changes in conditions, medications and medical history. Dr. Farooq at bedside accompanied by RN. Wound assessed, time out performed by MD/RN. Wound debrided as detailed in the physician progress/procedure note. Plan of care discussed with patient. Dressings placed per MD orders. Patient instructed on the signs and symptoms of infection and to call the Wound Center if any occur or to go to the ED if we are closed: Increased pain in wound Increase in drainage from the wound Redness in the skin surrounding the wound Bleeding from the wound Temperature of 101 or greater Patient instructed that elevated blood sugars delay healing of the wound and can cause further complications including but not limited to amputation of toes or feet. Patient instructed that the weight of their body puts a large amount of pressure on their wounds. This pressure keeps the new tissue from growing and inhibits new blood vessels from forming. Explained that, if they continue to bear weight on a body part that has a wound, the time it takes to heal the wound increases, the wound may get worse or the wound may not heal at all. Patient verbalized understanding of all discharge instructions and plan of care. Patient left in stable condition with no sign or symptom of distress at time of discharge. Addendum: 07/22/18 at 1408 by Maricruz Posada RN Amended: Links added.
== END 2018-07-22 13:03 | disposition home or self-care (01) ==
LOC: WOUND CARE 10:58
PROVIDERS: ATTEND Surgery
DX: E11.622 Type 2 diabetes mellitus with other skin ulcer (principal); L89.314 Pressure ulcer of right buttock, stage 4; L98.411 Non-pressure chronic ulcer of buttock limited to breakdown of skin; L30.4 Erythema intertrigo; I11.0 Hypertensive heart disease with heart failure; I25.10 Atherosclerotic heart disease of native coronary artery without angina pectoris; I50.9 Heart failure, unspecified; E78.5 Hyperlipidemia, unspecified; E78.00 Pure hypercholesterolemia, unspecified; G82.50 Quadriplegia, unspecified; G47.30 Sleep apnea, unspecified; I48.91 Unspecified atrial fibrillation; E66.9 Obesity, unspecified; Z79.01 Long term (current) use of anticoagulants; Z79.84 Long term (current) use of oral hypoglycemic drugs; Z79.899 Other long term (current) drug therapy; Z95.1 Presence of aortocoronary bypass graft; Z95.5 Presence of coronary angioplasty implant and graft
CPT/HCPCS: 36416; 82948; 97597; A6243

== ENCOUNTER 2018-08-05 10:58 | Day surgery (SDC) | payer MEDICARE, OTHER ==
--- NOTE | 2018-08-05 14:43 | NUR ---
[facility] Patient admitted to outpatient wound care for physician visit with Faizan Farooq MD. Dressing removed, wound cleansed and patient assessed for changes in conditions, medications and medical history. Dr. Farooq at bedside accompanied by RN. Wound assessed, time out performed by MD/RN. Wound debrided as detailed in the physician progress/procedure note. Plan of care discussed with patient. Dressings placed per MD orders. Patient instructed on the signs and symptoms of infection and to call the Wound Center if any occur or to go to the ED if we are closed: Increased pain in wound Increase in drainage from the wound Redness in the skin surrounding the wound Bleeding from the wound Temperature of 101 or greater Patient instructed that elevated blood sugars delay healing of the wound and can cause further complications including but not limited to amputation of toes or feet. Patient instructed that the weight of their body puts a large amount of pressure on their wounds. This pressure keeps the new tissue from growing and inhibits new blood vessels from forming. Explained that, if they continue to bear weight on a body part that has a wound, the time it takes to heal the wound increases, the wound may get worse or the wound may not heal at all. Patient verbalized understanding of all discharge instructions and plan of care. Patient left in stable condition with no sign or symptom of distress at time of discharge. Addendum: 08/05/18 at 1445 by Maricruz Posada RN Amended: Links added.
== END 2018-08-05 13:04 | disposition home or self-care (01) ==
LOC: WOUND CARE 10:58
PROVIDERS: ATTEND Surgery
DX: E11.622 Type 2 diabetes mellitus with other skin ulcer (principal); L89.314 Pressure ulcer of right buttock, stage 4; L98.411 Non-pressure chronic ulcer of buttock limited to breakdown of skin; L30.4 Erythema intertrigo; I11.0 Hypertensive heart disease with heart failure; I25.10 Atherosclerotic heart disease of native coronary artery without angina pectoris; I50.9 Heart failure, unspecified; E78.5 Hyperlipidemia, unspecified; E78.00 Pure hypercholesterolemia, unspecified; G82.50 Quadriplegia, unspecified; G47.30 Sleep apnea, unspecified; I48.91 Unspecified atrial fibrillation; E66.9 Obesity, unspecified; Z79.01 Long term (current) use of anticoagulants; Z79.84 Long term (current) use of oral hypoglycemic drugs; Z79.899 Other long term (current) drug therapy; Z95.1 Presence of aortocoronary bypass graft; Z95.5 Presence of coronary angioplasty implant and graft
CPT/HCPCS: 36416; 82948; 97597; 97598; A6266; A6243

== ENCOUNTER 2018-08-19 11:00 | Day surgery (SDC) | payer MEDICARE, OTHER ==
--- NOTE | 2018-08-19 15:57 | NUR ---
1130 Patient arrived safely into [facility]. Patient admitted to outpatient wound care clinic for follow-up visit with physician. Patient placed in isolation per isolation protocol. Dressing removed, wound cleansed. Patient assessed for changes in conditions, medications and medical history. Patient showed no s/s of distress at time of assessment. 1240 at bedside accompanied by RN. Wounds assessed, time out performed and debridement done today as detailed in the physician progress/procedure note. Plan of care discussed with patient. Dressings placed per MD orders. Patient instructed on the signs and symptoms of infection and to call the Wound Center if any occur or to go to the ED if we are closed: Increased pain in wound Increase in drainage from the wound Redness in the skin surrounding the wound Bleeding from the wound Temperature of 101 or greater Patient instructed that the weight of their body puts a large amount of pressure on their wounds. This pressure keeps the new tissue from growing and inhibits new blood vessels from forming. Explained that, if they continue to bear weight on a body part that has a wound, the time it takes to heal the wound increases, the wound may get worse or the wound may not heal at all. Patient verbalized understanding of all discharge instructions and plan of care. Patient left independently out to [facility] via his w/c and is in stable condition with no sign or symptom of distress at time of discharge.
== END 2018-08-19 13:05 | disposition home or self-care (01) ==
LOC: WOUND CARE 11:00
PROVIDERS: ATTEND Surgery
DX: E11.622 Type 2 diabetes mellitus with other skin ulcer (principal); L89.314 Pressure ulcer of right buttock, stage 4; L98.411 Non-pressure chronic ulcer of buttock limited to breakdown of skin; L30.4 Erythema intertrigo; I11.0 Hypertensive heart disease with heart failure; I25.10 Atherosclerotic heart disease of native coronary artery without angina pectoris; I50.9 Heart failure, unspecified; E78.5 Hyperlipidemia, unspecified; E78.00 Pure hypercholesterolemia, unspecified; G82.50 Quadriplegia, unspecified; G47.30 Sleep apnea, unspecified; I48.91 Unspecified atrial fibrillation; E66.9 Obesity, unspecified; Z79.01 Long term (current) use of anticoagulants; Z79.84 Long term (current) use of oral hypoglycemic drugs; Z79.899 Other long term (current) drug therapy; Z95.1 Presence of aortocoronary bypass graft; Z95.5 Presence of coronary angioplasty implant and graft
CPT/HCPCS: 36416; 82948; 97597; 97598; A6266

== ENCOUNTER 2018-09-02 11:10 | Day surgery (SDC) | payer MEDICARE, OTHER ==
--- NOTE | 2018-09-02 13:18 | NUR ---
[facility] Patient admitted to outpatient wound care for physician visit with Faizan Farooq MD. Dressings removed and wound cleansed. Patient assessed for changes in conditions, medications and medical history. Dr. Farooq at bedside accompanied by RN. Wound assessed, time out performed by MD/RN. Wound debrided as detailed in the physician progress/procedure note. Plan of care discussed with patient. Dressings placed per MD orders. Patient instructed on the signs and symptoms of infection and to call the Wound Center if any occur or to go to the ED if we are closed: Increased pain in wound Increase in drainage from the wound Redness in the skin surrounding the wound Bleeding from the wound Temperature of 101 or greater Patient instructed that elevated blood sugars delay healing of the wound and can cause further complications including but not limited to amputation of toes or feet. Patient instructed that the weight of their body puts a large amount of pressure on their wounds. This pressure keeps the new tissue from growing and inhibits new blood vessels from forming. Explained that, if they continue to bear weight on a body part that has a wound, the time it takes to heal the wound increases, the wound may get worse or the wound may not heal at all. Patient verbalized understanding of all discharge instructions and plan of care. Patient left in stable condition with no sign or symptom of distress at time of discharge. Addendum: 09/02/18 at 1322 by Maricruz Posada RN Amended: Links added.
== END 2018-09-02 12:52 | disposition home or self-care (01) ==
LOC: WOUND CARE 11:10
PROVIDERS: ATTEND Surgery
DX: E11.622 Type 2 diabetes mellitus with other skin ulcer (principal); L89.314 Pressure ulcer of right buttock, stage 4; L98.411 Non-pressure chronic ulcer of buttock limited to breakdown of skin; L30.4 Erythema intertrigo; I11.0 Hypertensive heart disease with heart failure; I25.10 Atherosclerotic heart disease of native coronary artery without angina pectoris; I50.9 Heart failure, unspecified; E11.65 Type 2 diabetes mellitus with hyperglycemia; E78.5 Hyperlipidemia, unspecified; E78.00 Pure hypercholesterolemia, unspecified; G82.50 Quadriplegia, unspecified; G47.30 Sleep apnea, unspecified; I48.91 Unspecified atrial fibrillation; E66.9 Obesity, unspecified; Z79.01 Long term (current) use of anticoagulants; Z79.84 Long term (current) use of oral hypoglycemic drugs; Z79.899 Other long term (current) drug therapy; Z95.1 Presence of aortocoronary bypass graft; Z95.5 Presence of coronary angioplasty implant and graft
CPT/HCPCS: 36416; 82948; 97597; 97598; A6266